=== PATIENT | male | born 1950 | race Caucasian/White ===

== ENCOUNTER 2017-01-15 14:45 | Outpatient (CLI) | payer MEDICARE ==
[2017-01-15 16:24] LABS: #Eosinphils 0.4 thou/uL (0.0-0.7); #Monocytes 0.5 thou/uL (0.11-0.59); #Neutrophils 5.1 thou/uL (1.40-6.50); %Basophils 0.3 % (0.0-1.0); %Eosinophils 5.2 % (0.0-10.0); %Lymphocytes 24.4 % (21.0-51.0); %Monocytes 6.7 % (0.0-10.0); Hematocrit 31.8 % (42.0-52.0); Mean Platelet Volume 7.7 fL (7.4-10.4); Red Blood Cell (RBC) Count 3.62 mill/uL (4.70-6.10)
[2017-01-15 16:43] LABS: Anion Gap 14 mmol/L (10-20); BUN (Urea Nitrogen) 58 mg/dL (8.4-25.7); Calc. Creatinine Clearance 0 mL/min (70-130); Calcium 8.7 mg/dL (7.8-10.44); Carbon Dioxide 26 mmol/L (23-31); Chloride 107 mmol/L (98-107); Estimated GFR-MDRD 6
== END 2017-01-15 14:46 | disposition home or self-care (01) ==
LOC: LABBT 14:45
PROVIDERS: ATTEND Specialist
DX: Z01.812 Encounter for preprocedural laboratory examination (principal); T85.611A Breakdown (mechanical) of intraperitoneal dialysis catheter, initial encounter; N18.6 End stage renal disease
CPT/HCPCS: 80048; 85025

== ENCOUNTER → 2017-01-16 | Day surgery (SDC) | payer MEDICARE ==
[2017-01-15 15:13] VITALS: BMI 32.3
--- NOTE | 2017-01-15 15:49 | HP ---
HISTORY OF PRESENT ILLNESS: Nigel Sherman is a 65-year-old male patient who lives in [place]. He suffe rs end-stage renal disease. He has been doing peritoneal dialysis at home, but has recently had prob lems with his peritoneal dialysis catheter which is not draining completely. He developed fluid over load last week and Sunday, presented to the dialysis center. Fortunately had a left arm fistula that they were dialyze in a reverse fashion with difficulty, but successfully for two and half hours, res olving his fluid overload. He presents to my office today to address his dysfunctional peritoneal di alysis catheter. On 07/26/2016, he had laparoscopic placement of double cuffed pigtail peritoneal di alysis catheter with laparoscopic omentopexy, laparoscopic adhesiolysis and at the same operation, le ft arm primary fistula, perforating branch antecubital vein to the ulnar artery, outflow primarily ce phalic vein with secondary outflow basilic vein (anatomic consideration), a 4 mm coronary dilator jason ibration cephalic vein outflow. The outflow vein was very large and ulnar artery was of excellent ca liber without arteriosclerotic disease. The patient is obese, 33 BMI, 248 pounds, 72 inches. ALLERGIES: None. TOBACCO: None. ALCOHOL: None. MEDICATIONS: Metoprolol 50 mg twice a day, aspirin 81 mg a day, Senna daily, lisinopril 5 mg a day, pravastatin 10 mg a day, pravastatin 40 mg a day, amlodipine 10 mg a day, lorazepam 2 mg at bedtime, insulin, aspirin 81 mg a day. PAST SURGICAL HISTORY: Laparoscopic peritoneal dialysis catheter and left arm fistula, otherwise non contributory. PAST MEDICAL HISTORY: End-stage renal disease on dialysis, hypertension, diabetes mellitus, obesity, metabolic syndrome. PHYSICAL EXAMINATION: VITAL SIGNS: 248 pounds, 72 inches, 33 BMI, 161/70, 87, 99 degrees. HEENT: Unremarkable. LUNGS: Clear to auscultation. CARDIAC: Regular rate and rhythm without murmur or gallop. ABDOMEN: Soft, obese. Peritoneal dialysis catheter in place. No external abnormalities. EXTREMITIES: Left arm fistula, good thrill and bruit with some ecchymosis about the right upper arm from recent access. ASSESSMENT AND PLAN: 1. Dysfunctional peritoneal dialysis catheter. Planned laparoscopic evaluation tomorrow afternoon. Procedures indicated based on laparoscopic findings. 2. He will need hemodialysis catheter placement due to dysfunctional fistula unless the course they were able to dialyze successfully today in which case a dialysis center in [facility] [place], [place], will call me and we will hold off hemodialysis catheter. 3. Obesity. 4. Hypertension. 5. Diabetes.
[~2017-01-16] MED LIST: Bupivacaine/Epinephrine 0.25% 30 ML VIAL ONE; CEFAZOLIN/Water 2 GM/20 ML SYRINGE ONE; Dexamethasone 20 MG/5 ML VIAL ONE; Fentanyl 100 MCG/2 ML VIAL ONE; Glycopyrrolate 0.2 MG/ML 5 ML SYRINGE ONE; Heparin 10,000 UNITS/1 ML VIAL ONE; Lidocaine 1% PF 5 ML VIAL ONE; Lidocaine 2% PF 5 ML VIAL ONE; Ondansetron HCl/PF 4 MG/2 ML Vial ONE; Propofol 200 MG/20 ML VIAL ONE; Sodium Chloride 0.9% 20 ML ONE; ePHEDrine/0.9% NaCl/PF SYRINGE 50 mg/10 ml ONE
--- NOTE | 2017-01-16 16:10 | RAD ---
PORTABLE CHEST: HISTORY: Assess catheter placement. FINDINGS: A dual-lumen catheter via the right jugular has been placed. The tip overlies the SVC. Heart size is mildly prominent with postop sternotomy changes noted. Lungs appear well aerated. The re is mild vascular interstitial congestion. No pneumothorax or other acute process. Tiny effusions cannot be excluded. POS: [facility]
--- NOTE | 2017-01-16 18:44 | OP ---
PREOPERATIVE DIAGNOSES: End-stage renal disease, dysfunctional peritoneal dialysis catheter malfunct ion, left upper arm cephalic vein arteriovenous fistula, in need of dialysis access. POSTOPERATIVE DIAGNOSES: End-stage renal disease, dysfunctional peritoneal dialysis catheter malfunc tion, left upper arm cephalic vein arteriovenous fistula, in need of dialysis access. PROCEDURE: Fluoroscopy and ultrasound used to place a right IJ cuffed tunnel hemodialysis catheter, angiodynamics precurved. Laparoscopic evaluation of peritoneal dialysis catheter with laparoscopic o mentopexy and laparoscopic placement of peritoneal dialysis catheter sling directed into the pelvis jonnie barnett. SURGEON: Dr. Manuel Collins ANESTHESIA: General. Local 0.25% Marcaine with epinephrine, 15 mL, mixed with 2% Xylocaine, 10 mL PROCEDURE IN DETAIL: The patient was taken to the operating room where under general anesthesia, nec k, chest, and abdomen was clipped of hair, prepared with chloraprep, draped in routine fashion. Ultr asound guidance used to cannulate the right internal jugular vein. J-wire threaded. Trocar catheter removed. Skin incised and enlarged sharply. Stab incision made over the left chest. Using the flaquita neling device, precurved angiodynamics, precurved hemodialysis catheter between these two incisions, placing the fabric cuff beneath the skin exit site on the skin, securing the catheter with suture of 3-0 nylon. Smaller and medium sized dilators placed over the J-wire into the internal jugular vein a nd removed. Dilator and pull-away sheath placed over the J-wire in superior vena cava and dilator an d J-wire removed. Catheter placed with pull-away sheath and pull-away sheath removed. Fluoroscopica lly, catheter noted to be in good position as the platysma approximated with 4-0 Monocryl, skin with subdermal 4-0 Monocryl and DermaGlue and sterile dressing applied. Each port aspirated blood and flu shed with saline solution and heparinized saline solution and 1000 units heparin per mL indicated vol ume of the port. Fluoroscopic imaging revealed good line placement. Attention was then turned to the abdomen, bilateral subcostal skin incision was made far lateral at t he old laparoscopic port sites and pneumoperitoneum to 15 mmHg obtained with the Veress needle, repla cing it with a 5 port. Video laparoscope inserted. Contralateral port placed under laparoscopic vis ualization. Omentopexy previously placed was effective, although there was another segment of omentu m that hung down towards the pelvis, but was not wrapped around the peritoneal dialysis catheter asher use this hung down in the vicinity of it as a preventive matter. Laparoscopic omentopexy performed w ith 2-0 Ethibond suture. Peritoneal dialysis catheter was dependent but was a little higher than in the pelvis than usual. It was withdrawn out of mesenteric fat. It was not adherent. The catheter had been irrigated well, bu t not drain as well as expected. Laparoscopic placement of 2-0 Ethibond sling suture placed with a t ransabdominal fixation technique using a GraNee needle used to direct the catheter more inferiorly. This was placed in such a way as to not occlude the catheter. Once this suture was placed and tied, then the catheter was flushed with heparinized saline solution 10 mL 1000 units heparin per mL. The catheter flushed well, visualized laparoscopically. Irrigant and pneumoperitoneum evacuated. All in struments removed and all skin incisions approximated with interrupted subdermal 4-0 Monocryl and Heath maGlue applied. The patient tolerated the procedure well.
== END ==
LOC: SDC 11:24
PROVIDERS: ATTEND Specialist
PROC: 0DQU4ZZ Repair Omentum, Percutaneous Endoscopic Approach (ICD-10-PCS; principal; 2017-01-16)
PROC: 05H Upper Veins, Insertion (ICD-10-PCS; 2017-01-16)
DX: T85.611A Breakdown (mechanical) of intraperitoneal dialysis catheter, initial encounter (principal); I12.0 Hypertensive chronic kidney disease with stage 5 chronic kidney disease or end stage renal disease; E11.22 Type 2 diabetes mellitus with diabetic chronic kidney disease; N18.6 End stage renal disease; E66.9 Obesity, unspecified; Z68.31 Body mass index [BMI] 31.0-31.9, adult; Z79.4 Long term (current) use of insulin; Z79.82 Long term (current) use of aspirin; Z79.899 Other long term (current) drug therapy; Z90.49 Acquired absence of other specified parts of digestive tract; Z95.1 Presence of aortocoronary bypass graft; Z98.890 Other specified postprocedural states; Z99.2 Dependence on renal dialysis
CPT/HCPCS: 36558; 49325; 49326; 71010; 82962; C1752; C1769; 36416; A4216; J0131; J1100; J1644; J2001; J2405; J2704; J3010

== ENCOUNTER 2017-01-19 06:53 | Day surgery (SDC) | payer MEDICARE ==
[2017-01-18 13:18] VITALS: BMI 33.6
[~2017-01-19 06:53] MED LIST changes: -Bupivacaine/Epinephrine 0.25% 30 ML VIAL ONE; -CEFAZOLIN/Water 2 GM/20 ML SYRINGE ONE; -Dexamethasone 20 MG/5 ML VIAL ONE; +FLU VACC TS2017-18 (>65YR) 0.5 ML SYRINGE IM ONE; -Fentanyl 100 MCG/2 ML VIAL ONE; -Glycopyrrolate 0.2 MG/ML 5 ML SYRINGE ONE; -Heparin 10,000 UNITS/1 ML VIAL ONE; -Lidocaine 1% PF 5 ML VIAL ONE; -Lidocaine 2% PF 5 ML VIAL ONE; -Ondansetron HCl/PF 4 MG/2 ML Vial ONE; -Propofol 200 MG/20 ML VIAL ONE; -Sodium Chloride 0.9% 20 ML ONE; -ePHEDrine/0.9% NaCl/PF SYRINGE 50 mg/10 ml ONE
[2017-01-19 08:31] VITALS: BP 126/63; TEMP 98.2
--- NOTE | 2017-01-19 10:48 | SPC ---
LEFT UPPER EXTREMITY FISTULOGRAM LEFT UPPER EXTREMITY VENOGRAM WITH SUPERIOR VENACAVOGRAM: Indication: Non-maturing dialysis fistula in the left upper extremity. FINDINGS: 1. Ultrasound was utilized to assess the fistula and venous outflow. Ultrasound confirms the arterial anastomosis at the brachial artery at the elbow is patent. Just proximal to the arterial anastomosis two large venous structures arise, one leading to the cephalic outflow and the other to the basilic outflow. 2. The cephalic outflow is punctured under ultrasound guidance and a 4 Italian catheter inserted. Veno gram and superior venacavogram obtained from this location. The cephalic outflow is widely patent. Ce ntral venous structures are widely patent including axillary vein, subclavian vein, and superior vena cava. 3. The basilic outflow was then puncture under ultrasound guidance. A large basilic vein arises just beyond the arterial anastomosis and is also patent. IMPRESSION: Non-maturing fistula due to two large venous outflow tracts arising just proximal to the arterial claude stomosis. PROCEDURE NOTE: Left upper extremity was prepped and draped in a sterile manner. After ultrasound evaluation the ceph alic outflow was puncture under local anesthesia with Lidocaine. Wire was introduced and a catheter w as placed over the wire. Venogram was obtained by injecting through this catheter. The basilic outflow was then punctured under ultrasound guidance and a wire was placed into the basil ic vein. Catheter was introduced. Venogram was obtained from this position. Patient tolerated the procedure fine and there were no problems or complications. POS: [facility]
== END 2017-01-19 10:10 | disposition home or self-care (01) ==
LOC: SPEC 06:53
PROVIDERS: ATTEND Specialist
DX: T82.590A Other mechanical complication of surgically created arteriovenous fistula, initial encounter (principal); N18.6 End stage renal disease
CPT/HCPCS: 36901; 76942; 90471; 90682; 90732; G0008; G0009; Q2036

== ENCOUNTER 2017-04-26 14:00 | Outpatient (CLI) | payer MEDICARE | END 2017-04-26 14:01 | disposition home or self-care (01) | LOC: BICRAD 14:00 | PROVIDERS: ATTEND Internal Medicine Nephrology | DX: Z49.02 Encounter for fitting and adjustment of peritoneal dialysis catheter (principal) | CPT/HCPCS: 74018 ==

== ENCOUNTER 2017-04-27 10:07 | Outpatient (CLI) | payer MEDICARE ==
[2017-04-27] MEDS ORDERED: Iopamidol 370 76% 100 ML VIAL ONE (11:33)
--- NOTE | 2017-04-27 13:04 | CT ---
CT ABDOMEN AND PELVIS WITH IV CONTRAST: INDICATIONS: History of end stage renal disease with right lower quadrant pain, ongoing or 1.5 weeks. The patient has no history of cancer. He does currently have a peritoneal dialysis catheter. The patient has a history of an appendectomy. COMPARISON: None. FINDINGS: There is mild bibasilar atelectasis. There are small bilateral pleural effusions. There are small gallstones within the gallbladder. There is a 5.8 x 4 cm heterogeneously enhancing h ypodense mass within the right hepatic dome, on image 6 of series 2 and on image 98 of the coronal se lilly. No pathologically enlarged lymph nodes are evident within the tyra hepatis or upper abdomen. The visualized aspects of the pancreas, spleen, and adrenal glands are normal appearing. The kidney s are atrophic. There is a 2 cm cyst involving the upper pole of the right kidney. No retroperitoneal lymphadenopathy is evident. There are severe vascular calcifications noted involving the abdominal and pelvic vasculature. There is a peritoneal dialysis catheter seen within the lower central pelvis. The bladder wall is mi ldly thickened, which may be related to chronic bladder outlet obstruction. The colon appears within normal limits. The small bowel is of normal caliber. There is scattered degenerative and osteoarthritic change. No definite acute osseous abnormality is evident. There is partial visualization and instrumentation involving the right aspect of the pelvis . IMPRESSION: 1. Heterogeneously enhancing mass within the right hepatic dome is nonspecific on this single phase examination. Findings can be seen with entities such as hepatic abscess; however, primary hepatic ma lignancy or metastatic disease is not excluded. A follow-up CT of the abdomen, utilizing hemangioma protocol, is recommended. 2. Small bilateral pleural effusions with bibasilar atelectasis. 3. Cholelithiasis. 4. Atrophic kidneys with peritoneal dialysis catheter. Small right renal cyst. The findings were discussed with Dr. Collins at 11:40 a.m. on 04/27/2017. CODE CR POS: [facility]
== END 2017-04-27 10:08 | disposition home or self-care (01) ==
LOC: CT 10:07
PROVIDERS: ATTEND Specialist
DX: N18.6 End stage renal disease (principal); K76.89 Other specified diseases of liver; J90 Pleural effusion, not elsewhere classified; J98.11 Atelectasis; K80.20 Calculus of gallbladder without cholecystitis without obstruction; N28.1 Cyst of kidney, acquired; N26.1 Atrophy of kidney (terminal); Z99.2 Dependence on renal dialysis
CPT/HCPCS: 74177

== ENCOUNTER 2017-05-02 10:27 | Outpatient (CLI) | payer MEDICARE ==
[2017-05-02] MEDS ORDERED: ISOVUE-370 76%-LOCM 1 ML ONE (12:51)
== END 2017-05-02 10:28 | disposition home or self-care (01) ==
LOC: BICULT 10:27
PROVIDERS: ATTEND Specialist
DX: N18.6 End stage renal disease (principal); R10.31 Right lower quadrant pain; K80.80 Other cholelithiasis without obstruction; K76.9 Liver disease, unspecified
CPT/HCPCS: 74170; 76705

== ENCOUNTER 2017-06-17 20:57 | Inpatient (IN) | payer MEDICARE ==
--- NOTE | 2017-06-17 22:08 | PDOC.FPRHP ---
- History of Present Illness Chief Complaint: Syncope, Hypotension History of Present Illness: 66 year old male with PMH CAD s/p 3V CABG in 2010, CHF with reduced EF of 25-30% , HLD, HTN, ESRD on PD, DM type II, and COPD that presents as a transfer from [place] ED after a syncopal episode. He was getting up from a bar stool when he fell over and lost consciousness. Patient states that he has been feeling dizzy over the last three days. He describes the dizziness as light- headedness as opposed to vertigo. He has felt dizzy upon standing for the past several days. He states that he has been drinking a pint of water a day which is his normal amount of water intake. He has otherwise been feeling well and denies any nausea, vomiting, chest pain, shortness of breath, lower extremity swelling, or diarrhea. Patient was hospitalized in May of 2017 for NSTEMI. He had a cardiac catheterization on 05/25/2017 which showed severe multivessel disease. Recommended optimization of medical management at that time. Echocardiogram during that hospitalization showed reduced EF of 25-30%. Patient states that the only symptom he had during his last hospitalization and the hospitalization which required 3V bypass surgery was left arm pain. He has never felt chest pain or shortness of breath associated with ischemic events. Patient scheduled to see Dr. Victor this week as part of hospital follow up from last admission. He has not followed with PCP since hospitalization. Patient thinks he is on a fluid pill which may be contributing to his dizziness , although there is no documentation of patient being discharged on fluid pill from hospital. ED Course: Patient was transferred from [place] ED for elevated troponin and low BP. Patient given 1 L NS bolus in ED. - Allergies/Adverse Reactions Allergies Allergy/AdvReac Type Severity Reaction Status Date / Time No Known Allergies Allergy Verified 06/18/17 02:34 - Home Medications Medication Instructions Recorded Confirmed Type Aspirin [Ecotrin] 81 mg PO DAILY 07/20/16 06/18/17 History Pravastatin Sodium [Pravachol] 40 mg PO HS 07/20/16 06/18/17 History Calcitriol 0.25 mcg PO DAILY 01/15/17 06/18/17 History Calcium Acetate [Calcium Acetate] 2 tab PO TID 01/15/17 06/18/17 History Cholecalciferol (Vitamin D3) 5,000 unit PO DAILY 01/15/17 06/18/17 History [Vitamin D3] Lactulose [Constulose] 15 ml PO DAILY PRN 01/15/17 06/18/17 History Insulin Detemir 100 UNITS/ML 40 units SC HS 30 Days #1 vial 05/26/17 06/18/17 Rx [Levemir] Metoprolol Succinate [Toprol XL] 100 mg PO DAILY 30 Days #30 tab 05/26/17 Rx Amlodipine Besylate [amLODIPine 10 mg PO DAILY 06/18/17 06/18/17 History Besylate] Sertraline HCl [Zoloft] 50 mg PO DAILY 06/18/17 06/18/17 History Sevelamer Carbonate [Renvela] 1,600 mg PO TID-WM 06/18/17 06/18/17 History Comments: Confirm med rec with pharmacy in AM - History PMHx: CAD s/p 3V CABG in 2010, Insulin dependent diabetes mellitus type 2, HTN, HLD, ESRD on PD, Depression, History of tobacco abuse, AR in 2010, CHF with EF 25-30% PSHx: CABG x3 vessels in 2010, Left forearm AV fistula placement approximately 7 months ago, Back surgery 15 years ago, Appendectomy FHx: Mother with diabetes Social: Patient reports a 30 pack per year smoking history. He states he smoke approximately one half pack per day for 50 years. Patient denies current alcohol use or illicit drug use. Former methamphetamine user. He lives at home alone. - Review of Systems General: denies: fever/chills, weight/appetite/sleep changes, night sweats, fatigue Eyes: denies: eye pain, vision changes ENT: denies: nasal congestion, rhinorrhea Respiratory: denies: cough, congestion, shortness of breath, exercise intolerance Cardiovascular: denies: chest pain, palpitation, edema Gastrointestinal: denies: nausea, vomiting, diarrhea, constipation, abdominal pain Genitourinary: denies: incontinence, dysuria, polyuria Skin: denies: rashes, lesions, jaundice, itching Musculoskeletal: reports: pain, tenderness (back pain and tenderness), other ( No left arm pain). denies: swelling Neurological: reports: syncope, other (dizziness/light-headedness). denies: numbness, seizure, weakness - Vital signs BP: 97/58 HR: 71 RR: 20 Tmax: 98.8 Pox: 95% on RA Wt: 98.88 kg - Physical Exam Constitutional: NAD, awake, alert and oriented, well developed HEENT: normocephalic and atraumatic, PERRLA, EOMI, conjunctiva clear, no scleral icterus, MMM Neck: supple Heart: RRR, normal S1/S2, no murmurs/rubs/gallops, pulses present, no edema -Heart: distant heart sounds Lungs: CTAB, no respiratory distress, good air movement, no wheezing, no retractions Abdomen: soft, non-tender, bowel sounds present -Abdomen: PD catheter on left lower quadrant. No surrounding erythema or drainage. Musculoskeletal: normal structure -Musculoskeletal: Palpable thrill of AV fistula on left arm Neurological: no focal deficit, CN II-XII intact Skin: no rash/lesions, good turgor, capillary refill <2 seconds, no jaundice Psychiatric: normal mood and affect, good judgment and insight, intact recent and remote memory FMR H&P: Results - Labs Result Diagrams: 06/18/17 02:55 06/18/17 02:55 - EKG Interpretation EKG: ST depression in lateral leads V4, V5, V6 which is a change from prior EKG which showed ST depression in anterior leads - Radiology Interpretation Chest x-ray Status: image reviewed by me, report reviewed by me Additional comment: No acute cardiopulmonary process. Pneumoperitoneum noted, likely 2/2 peritoneal dialysis. FMR H&P: A/P - Problem List (1) NSTEMI (non-ST elevated myocardial infarction) Current Visit: No Status: Acute Code(s): I21.4 - NON-ST ELEVATION (NSTEMI) MYOCARDIAL INFARCTION (2) Syncope Current Visit: Yes Status: Acute Code(s): R55 - SYNCOPE AND COLLAPSE (3) Hypotension Current Visit: Yes Status: Acute (4) Elevated troponin Current Visit: Yes Status: Acute Code(s): R74.8 - ABNORMAL LEVELS OF OTHER SERUM ENZYMES (5) CAD (coronary artery disease) Current Visit: Yes Status: Chronic Code(s): I25.10 - ATHSCL HEART DISEASE OF [place] CORONARY ARTERY W/O ANG PCTRS (6) HLD (hyperlipidemia) Current Visit: Yes Status: Chronic Code(s): E78.5 - HYPERLIPIDEMIA, UNSPECIFIED Qualifiers: Hyperlipidemia type: unspecified Qualified Code(s): E78.5 - Hyperlipidemia , unspecified (7) COPD (chronic obstructive pulmonary disease) Current Visit: No Status: Chronic Qualifiers: COPD type: unspecified COPD Qualified Code(s): J44.9 - Chronic obstructive pulmonary disease, unspecified (8) DM2 (diabetes mellitus, type 2) Current Visit: No Status: Chronic Qualifiers: 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 Diabetes mellitus complication status: with kidney complications Diabetes mellitus complication detail: with chronic kidney disease Chronic kidney disease stage : on chronic dialysis Qualified Code(s): E11.22 - Type 2 diabetes mellitus with diabetic chronic kidney disease; N18.6 - End stage renal disease; N18.6 - End stage renal disease; N18.6 - End stage renal disease; N18.6 - End stage renal disease; Z79.4 - ferry terminal agent (current) use of insulin; Z79.4 - penitentiary ( current) use of insulin; Z79.4 - penitentiary (current) use of insulin; Z79.4 - penitentiary (current) use of insulin; Z99.2 - Dependence on renal dialysis; Z99.2 - Dependence on renal dialysis; Z99.2 - Dependence on renal dialysis; Z99.2 - Dependence on renal dialysis (9) ESRD (end stage renal disease) Current Visit: No Status: Chronic Code(s): N18.6 - END STAGE RENAL DISEASE (10) HTN (hypertension) Current Visit: No Status: Chronic Code(s): I10 - ESSENTIAL (PRIMARY) HYPERTENSION Qualifiers: Hypertension type: essential hypertension Qualified Code(s): I10 - Essential (primary) hypertension (11) Heart failure with reduced ejection fraction Current Visit: No Status: Chronic Code(s): I50.20 - UNSPECIFIED SYSTOLIC ( CONGESTIVE) HEART FAILURE Qualifiers: Heart failure chronicity: acute on chronic Qualified Code(s): I50.23 - Acute on chronic systolic (congestive) heart failure (12) Tobacco abuse Current Visit: Yes Status: Chronic Code(s): Z72.0 - TOBACCO USE (13) High anion gap metabolic acidosis Current Visit: Yes Status: Acute Code(s): E87.2 - ACIDOSIS - Plan NSTEMI likely 2/2 demand - Pt without chest pain, but presents with syncopal episode - Catheterization done on 05/25/2017 which showed multivessel disease; Cards recommended optimization of medical management at that time - Echo during last hospitalization in 05/2017 showed reduced EF of 25-30% - Continue optimization of medical management; will decrease dose of coreg due to low BP and hold lisinopril until BP stabilized - Will need to verify medications with pharmacy tomorrow - Consult cardiology in AM as there are new EKG changes compared to prior EKG, as well as elevated troponin at 2.9; EKG showed lateral ST depression in V4, V5 , V6 - Prior EKG during last hospitalization showed ST depression in anterior leads - Trend CE's - Repeat EKG if patient endorses chest pain or left arm pain - Patient started on therapeutic heparin Syncope - Likely 2/2 orthostatic hypotension from volume depletion - Patient hypotensive, central line placed prior to heparin drip in the case that patient needs pressors - Pressures holding after 1L of fluids - Will hold lisinopril and decrease dose of coreg at this time until BP stabilized - Orthostatic BP's pending Hypotension - Central line placed prior to starting heparin drip as pt's BP was in mid 90's systolic and falling into the 80's occasionally - Concern for potential need for pressors - BP responded to 1L fluid bolus - Will have low threshold for additional fluid bolus should pt become hypotensive and have decreased MAPs Anion gap metabolic acidosis - Lactic acid pending - May be secondary to hypoperfusion vs. uremia CAD s/p 3V CABG in 2010 - Optimization of medication management - Cath done 05/25/17 showed multivessel disease with recommendations for optimization of medical management HFrEF of 25-30% - Based on echo done in 05/2017 - No fluid restrictions at this time as pt appears to be volume depleted - Will continue to monitor fluid status and monitor for signs of overload - Strict I&O's - Weigh daily ESRD on PD - Consult Dr. Pires in AM - Patient on nightly PD - Monitor with BMP HTN - Will hold lisinopril and decrease coreg at this time until BP stabilizes - Monitor BP HLD - Continue home medication - Consider starting on high intensity statin if no contraindications COPD - Continue home medications - Monitor O2 sats - Duoneb treatments as needed DM type II - Continue home insulin regimen - Mild SSI - CC and HH diet - ACHS accuchecks DVT PPx: Heparin Drip GI PPx: None Code status: Full Dispo: Admit to telemetry. Anticipate LOS >48 hours. FMR H&P: Upper Level - Pertinent history 66 yo CM with PMHx ESRD on PD, CAD s/p CABG x3, IDDM2, HTN presented to [place] ED for c/o dizziness and fall. Pt endorses feeling dizzy and lightheaded for 4 days especially when rising from seated position. Pt attempted to transfer to a barstool when he blacked out and fell to the floor. Endorsed hitting his head. Denies CASTILLO, N/V, or vision changes. States did not injure anything with the fall. Pt was discharged almost 2 weeks ago from the hospital following fluid overload and NSTEMI. Cardiac cath at that time showed severe blockage but nothing stentable per pt with medical management chosen as treatment. ECHO at that time showed EF 23-30%. Since then, he has seen Dr. Pires a couple times who may have adjusted medications although pt unable to specify which. Thinks a fluid pill may have been adjusted. BPs run 110s systolic at home. Denies chest pain. When had prior AR, only symptom was L arm discomfort. Compliant with dialysis and meds. Drinking 1 pint of water per day. Transferred to [facility] for admission due to elevated troponin. - Pertinent findings Gen: alert, NAD, answers questions appropriately CV: RRR, no m/r/g Lungs: fine bibasilar rales, no wheezing, no increased WOB Abd: soft, NT/ND, +BS, peritoneal dialysis catheter in LLQ with no erythema Ext: no edema; clubbing present - Plan Date/Time: 06/17/17 2204 1. NSTEMI. Troponin 2.9 in [place]. Cath 2 wks ago showed severe dz. EKG findings show lateral changes; last admission was anterior changes. Due to ESRD , starting therapeutic heparin. Consult cards in AM. Supposed to see Dr. Victor this wk as hospital f/u. Trops potentially hanging around from prior admission with ESRD due to no symptoms, although no chest pain with previous AR. If symptoms occur, repeat EKG and consider urgent cards referral. Admit to telemetry for expected 2-3 day stay. 2. Syncope. Suspect orthostatic hypotension from decreased volume status and hx of symptoms. DDX includes cardiogenic and vasovagal syncope. Given 1 L NS cautiously due to ESRD and HFrEF. Pts hypotension improved. Check orthostatic BPs. Continue to monitor and consider more fluids if symptoms persist. Cardiac monitoring. PT evaluation. 3. Hypotension. Likely 2/2 low fluid status. Careful fluids and monitor. Central line required in ED due to persistent low BPs in 80s-90s systolic with concern for needed pressors after heparin drip started. Pt endorses fluid restriction of 1 pint (475ml) although unclear if accurate. Hold home BP meds. Call pharmacy in AM to verify med list. Pts BPs improved following fluids and central line placement so currently plan to admit to telemetry. Upgrade to CCU/ IMCU if status changes requiring pressors. 4. ESRD on PD. Pt not encephalopathic and fluid status appears down. Will consult Dr. Pires in AM. Electrolyte abnormalities as expected for ESRD. BUN 74, Cr 14.6. Pneumoperitoneum on CXR although no peritoneal signs so likely 2/2 PD. 5. Anion gap metabolic acidosis. AG 24 with bicarb 20. Unclear if true acidosis. DDx lactic acidosis vs uremic acidosis. IV fluids. Check lactate. Repeat BMP. Continue peritoneal dialysis. 6. CAD. Home meds when BP normalizes. See #1. 7. Hypoxia. Lowest documented O2 91% in outside ED then placed on oxygen. Not requiring O2 currently. Lungs clear. No breathing difficulties seen. Monitor. 8. HFrEF. EF 25-30% 2 wks ago. Hx AR. Cautious IV fluids. CXR shows no fluid overload. Home meds. Fluid restriction. BNP 880 (much improved from last admission 1984). Half dose of beta nathaly due to hypotension. 9. DM2. Home insulin. Accuchecks and SSI. I, Alireza Springer, have evaluated this patient and agree with findings/plan as outlined by director international resident. Pertinent changes/additions are listed here. Attending Addendum - Attending Addendum Date/Time: 06/18/17 89 I personally evaluated the patient and discussed the management with Dr. Reddy I agree with the History, Examination, Assessment and Plan documented above with any addition or exceptions noted below- Briefly this is a 66 year old male with h/o ESRD on PD, DM, CAD with recent NSTEMI and CABG in past. COPD, and HTN presented after syncopal episode at home. Patient states that he had stood up and was walking to sit on a stool when he felt dizzy and blacked out. Reports that he has felt lightheaded/dizzy for last 2 days intermittently. Denies any CP , SOB. PMH/PSH/Meds/All/SH/ROS reviewed and agree with resident's documentation. BP: 97/58 HR: 71 RR: 20 Tmax: 98.8 Pox: 95% on RA Wt: 98.88 kg Lungs- CTA b/l; CV-RRR, no murmur; Abd- soft, mt/nd; Ext- no edema. Labs troponin 2.868 Cr= 14.48. EKG ST depression in V4-V6. A/P: 1) NSTEMI- tropnins lower than prior hospitalization. ?elevated levels due to ESRD versus new cardiac event. Continue heparin drip. Consult cardiology in AM. 2) Syncope- most likely due to volume depletion- continue to monitor. 3) Hypotension- resolved with small amount of fluids. Monitor fluid status closely. 4) ESRD- continue PD; consult nephrology. 5) DM- continue home meds.
[2017-06-17] MEDS ORDERED: Heparin 25,000 units/D5W 500 ML ONE (22:21)
[2017-06-17] MEDS ORDERED: Heparin 5,000 UNITS/ML VIAL ONE (22:21)
[2017-06-17 23:22] LABS: Troponin I 2.868 ng/mL (< 0.028)
[2017-06-18 02:04] LABS: Troponin I 2.898 ng/mL (< 0.028)
[2017-06-18 02:21] LABS: INR-International Normal Ratio 1.2; PTT 26.9 SEC (22.9-36.1); Prothrombin Time 14.9 SEC (12.0-14.7)
[2017-06-18] MEDS ORDERED: Heparin 10,000 UNITS/ 10 ML VIAL SLOW IVP SCH (02:41)
[2017-06-18] MEDS ORDERED: Acetaminophen 325 MG TAB PO PRN (02:41)
[2017-06-18] MEDS ORDERED: Ondansetron ODT 4 MG TAB PO PRN (02:41)
[2017-06-18] MEDS ORDERED: Heparin 25,000 units/D5W 500 ML IVPB SCH (02:41)
[2017-06-18 03:05] LABS: Hemoglobin 11.7 g/dL (14.0-18.0); Platelet Count 148 thou/uL (130-400)
[2017-06-18 03:37] VITALS: BMI 28.9
[2017-06-18 03:43] LABS: Lactic Acid 0.9 mmol/L (0.5-2.2)
[2017-06-18 03:46] LABS: Anion Gap 20 mmol/L (10-20); BUN (Urea Nitrogen) 75 mg/dL (8.4-25.7); Calc. Creatinine Clearance 7 mL/min (70-130); Calcium 8.5 mg/dL (7.8-10.44); Carbon Dioxide 24 mmol/L (23-31); Chloride 99 mmol/L (98-107); Estimated GFR-MDRD 3; Glucose 111 mg/dL (80-115); Potassium 3.5 mmol/L (3.5-5.1); Sodium 139 mmol/L (136-145)
[2017-06-18] MEDS ORDERED: Dextrose 50% Abboject 50 ML SYRINGE SLOW IVP PRN (04:30)
[2017-06-18] MEDS ORDERED: Dextrose 5% in Water 1,000 ML IV PRN (04:30)
--- NOTE | 2017-06-18 07:32 | RAD ---
CHEST 1 VIEW: HISTORY: A patient with recently placed central line. DATE: 06/17/17. COMPARISON: Comparison is made to previous exam from earlier in the day on 06/17/17. FINDINGS: AP view chest demonstrates sternotomy wires seen. There is some elevation of the right hemidiaphragm . Area of gas seen beneath the right hemidiaphragm is not seen at this time. This may be positional or may represent resolution. No evidence of effusions, pneumonia, or pneumothorax is seen. IMPRESSION: Previously noted area of gas beneath the right hemidiaphragm is no longer seen. POS: [facility]
--- NOTE | 2017-06-18 09:14 | PDOC.FM ---
- Subjective Subjective: Patient doing well this AM. He is up sitting on edge of bed iwthout difficulty. He was however orthostatic upon exam. He denies CP or SOB. Spoke with Dr. Pires who states he had had some fluid buildup ad was changed to a more aggressive fluid removal for PD. Patient notes that weight had been in 215- 218 range but over last few days he is down to 211. Patient also reports BP is usually around 115 systolic but had dropped as low as 88 yesterday. Does not report fever, chills, or pain. - Objective MAR Reviewed: Yes Vital Signs & Weight: Vital Signs (12 hours) Temp Pulse Resp BP BP BP BP 06/18/17 07:55 97.9 F 68 12 06/18/17 07:50 97.9 F 68 12 91/91 H 84/52 L 117/57 L 06/18/17 02:22 98.6 F 80 18 103/56 L Pulse Ox 06/18/17 07:55 94 L 06/18/17 07:50 94 L 06/18/17 02:22 93 L Weight Weight 96.751 kg Selected Entries 06/18/17 07:50 Blood Pressure 91/91 H [Sitting] Blood Pressure 84/52 L [Standing] Blood Pressure 117/57 L [Supine] Result Diagrams: 06/18/17 02:55 06/18/17 02:55 EKG Reviewed by me: Yes (ST depression V4,5,6) <Nan Kendrick - Last Filed: 06/18/17 11:56> - Objective Vital Signs & Weight: Vital Signs (12 hours) Temp Pulse Resp BP BP Pulse Ox 06/20/17 08:25 98.1 F 90 17 96 06/20/17 08:23 98.1 F 90 17 100/55 L 95 06/20/17 04:00 98.3 F 87 18 113/53 L 94 L Weight Weight 99.7 kg I&O: 06/19/17 06/20/17 06/21/17 06:59 06:59 06:59 Intake Total 1258 Balance 1258 Result Diagrams: 06/20/17 03:21 06/20/17 03:21 <Georgi Rodriguez - Last Filed: 06/20/17 11:06> Phys Exam - Physical Examination Constitutional: NAD HEENT: moist MMs Respiratory: no wheezing, no rales, no rhonchi, clear to auscultation bilateral Cardiovascular: RRR RUSB 2/6 systolic murmur Gastrointestinal: soft, non-tender, no distention Musculoskeletal: no edema Neurological: moves all 4 limbs Psychiatric: A&O x 3 <Nan Kendrick - Last Filed: 06/18/17 11:56> Dx/Plan (1) Orthostatic hypotension Code(s): I95.1 - ORTHOSTATIC HYPOTENSION Status: Acute (2) Elevated troponin Code(s): R74.8 - ABNORMAL LEVELS OF OTHER SERUM ENZYMES Status: Chronic (3) High anion gap metabolic acidosis Code(s): E87.2 - ACIDOSIS Status: Resolved (4) Hypotension Status: Acute QualifierTitle: Hypotension type: orthostatic hypotension Qualified Code( s): I95.1 - Orthostatic hypotension (5) Syncope Code(s): R55 - SYNCOPE AND COLLAPSE Status: Acute (6) CAD (coronary artery disease) Code(s): I25.10 - ATHSCL HEART DISEASE OF [place] CORONARY ARTERY W/O ANG PCTRS Status: Chronic (7) HLD (hyperlipidemia) Code(s): E78.5 - HYPERLIPIDEMIA, UNSPECIFIED Status: Chronic QualifierTitle: Hyperlipidemia type: unspecified Qualified Code(s): E78.5 - Hyperlipidemia, unspecified (8) COPD (chronic obstructive pulmonary disease) Status: Chronic QualifierTitle: COPD type: unspecified COPD Qualified Code(s): J44.9 - Chronic obstructive pulmonary disease, unspecified (9) DM2 (diabetes mellitus, type 2) Status: Chronic QualifierTitle: Diabetes mellitus residential insulin use: with residential use Diabetes mellitus complication status: with kidney complications Diabetes mellitus complication detail: with chronic kidney disease Chronic kidney disease stage: on chronic dialysis Qualified Code(s): E11.22 - Type 2 diabetes mellitus with diabetic chronic kidney disease; N18.6 - End stage renal disease; Z99.2 - Dependence on renal dialysis; Z99.2 - Dependence on renal dialysis; Z99.2 - Dependence on renal dialysis; N18.6 - End stage renal disease ; N18.6 - End stage renal disease; N18.6 - End stage renal disease; Z79.4 - terminal supervisor (current) use of insulin; Z79.4 - terminal supervisor (current) use of insulin; Z79.4 - [facility] (current) use of insulin; Z79.4 - terminal supervisor (current) use of 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 elevated trop (NSTEMI range) with ST depression in leads V4,5,6 - Likely demand ischemia in light of Severe multivessel disease and ESRD -trops less than prior admission for NSTEMI Syncope -consider carotid US vs neck CTA. -likely 2/2 orthostatic hypotension. -obtain carotid US prior to DC. HFrER -not in acute exacerbation - last ECHO on 05/31/17 with EF of 25-30% CAD s/p 3 vessel CABG -maximize medical mgmt. -appreciate cards recs -on high dose beta nathaly, lisinorpil, asa, and statin (not high dose, suspected 2/2 renal dz) ESRD on PD - Dr. Pires has been notified - PD if stays in hospital today. -will need to pull less fluid off during PD. -mgmt per Dr. Pires IDDM - BG controlled. -cont home meds HTN -orthostatic -hold meds for BP <100/70 HLD -Patient not on high intensity statin however likely due to renal dosing COPD Will walk patient and if orthostatic may require additional bolus. If not, likely home later today. <Nan Kendrick - Last Filed: 06/18/17 11:56> Attending Addendum - Attending Addendum Date/Time: 06/20/17 1102 I personally evaluated the patient and discussed the management with Dr. Kendrick I agree with the History, Examination, Assessment and Plan documented above with any addition or exceptions noted below. Plan today is carotid US. Syncope likely 2/2 orthostatic hypotension which may be worsened after change in PD regimen. CAD- optimize medical mgmt as BP tolerates. Will need outpt follow up for cont mgmt. <Georgi Rodriguez - Last Filed: 06/20/17 11:06>
[2017-06-18] MEDS: HumaLOG 300 UNITS/3 ML VIAL SC PRN ×2 (11:13→16:53)
[2017-06-18] MEDS: Sevelamer Carbonate 800 MG TAB PO SCH ×2 (11:14→16:54)
[2017-06-18] MEDS ORDERED: Heparin 25,000 units/D5W 500 ML IV SCH (13:45)
--- NOTE | 2017-06-18 15:13 | CON ---
DATE OF CONSULTATION: 06/18/2017 REASON FOR CONSULTATION: Syncope and elevated troponin. HISTORY OF PRESENT ILLNESS: Mr. Sherman is a pleasant 66-year-old gentleman who was seen and evaluated i n the past. He has a history of CAD status post bypass surgery in addition to end-stage renal diseas e. He recently presented with a syncopal episode. He states it happened 4 hours after his dialysis treatment. No chest pain or pressure, or other associated symptoms. Mr. Sherman has undergone coronary angiography of the last month. He was found to have severe multivesse l disease within the saphenous vein graft to the right coronary artery, nulato right coronary artery, circumflex artery, LAD in addition to diagonal branch. The vessels appeared very small, but did hav e multivessel disease. He was not felt to be an approachable PCI candidate. PAST MEDICAL HISTORY: As above including hypertension, diabetes mellitus, depression, cholecystitis, AV fistula repair, back surgery, appendectomy, right femur surgery. MEDICATIONS: Include metoprolol, Lasix, aspirin, Norvasc, Plavix and Levemir. SOCIAL HISTORY: No current tobacco or alcohol use. REVIEW OF SYSTEMS: Ten-point review of systems as above, otherwise negative. PHYSICAL EXAMINATION: GENERAL: Patient is a pleasant male who is in no acute distress. The patient appears his stated age . VITAL SIGNS: Blood pressure 178/57, pulse 68, temperature 97.9. NEUROLOGIC: The patient is alert and oriented times 3 with no focal neurologic deficits. HEENT: Sclerae without icterus. Mouth has moist mucous membranes with normal pallor. NECK: No JVD. Carotid upstroke brisk. No bruits bilaterally. LUNGS: Clear to auscultation with unlabored respirations. BACK: No scoliosis or kyphosis. CARDIAC: Regular rate and rhythm with normal S1 and S2. No S3 or S4 noted. No significant rubs, mu rmurs, thrills, or gallops noted throughout the precordium. PMI is not displaced. There is no marshall ternal heave. ABDOMEN: Soft, nontender, nondistended. No peritoneal signs present. No hepatosplenomegaly. No ab normal striae. EXTREMITIES: 2+ femoral and 2+ dorsalis pedis pulses. No cyanosis, clubbing, or edema. SKIN: No gross abnormalities. PERTINENT LABORATORY DATA: Peak troponin 2.8. IMAGING DATA: Last echo with Doppler dated 05/10/2017; LVEF 30%-35% with severe left atrial enlargem ent, mild to moderate TR, moderate MR. IMPRESSION: 1. Elevated troponin. 2. Ischemic cardiomyopathy. 3. Severe multivessel disease. 4. End-stage renal disease. RECOMMENDATIONS: At this point, did review Mr. Sherman's previous angio. His LAD has multiple lesions p resent within the mid to distal region and into the apex. He has ostial right coronary artery diseas e in addition to 90% stenosis of the distal RCA. to the right coronary artery also has severe lesion noted at the anastomosis. His circumflex artery is diffusely diseased with heavy calcificati on present. He also has an occluded LAD with diffuse disease present of septal branches and diagonal branches. At this point, he had 1 syncopal episode that may be ventricular in nature. At this poin t, would recommend EP consultation for possible ICD placement. His LVEF was 30%-35%. He has multive ssel disease that is not approachable percutaneously. We will continue to treat medically.
--- NOTE | 2017-06-18 16:27 | ULT ---
BILATERAL CAROTID DUPLEX ULTRASOUND WITH SPECTRAL ANALYSIS AND COLOR FLOW EVALUATION: Date: 06/18/17 HISTORY: Syncope. FINDINGS: Pollard scale, color flow, Doppler evaluation, and spectral analysis of the bilateral carotid arteries i s performed with 2D imaging. There is scattered calcified atherosclerotic plaque seen within the bilateral common carotid arteries , as well as in the carotid bulbs and proximal internal carotid arteries bilaterally. There is moderate (50-69%) stenosis involving the right internal carotid artery based on the peak sys tolic velocity of 130.2 cm/second. The right ICA/CCA ratio is 1.39. There is less than 50% maximal stenosis involving the left internal carotid artery based on peak syst olic velocity of 89.4 cm/second and an ICA/CCA ratio of 0.8. There are elevated peak systolic velocities in each external carotid artery suggesting significant st enosis. Antegrade flow is demonstrated in the vertebral arteries bilaterally. IMPRESSION: 1. Moderate (50-69%) stenosis involving the right internal carotid artery. 2. No hemodynamically significant stenosis in the left internal carotid artery. POS: RANDY
[2017-06-18] MEDS: Calcium Acetate 667 MG CAP PO SCH ×2 (16:54→21:41)
--- NOTE | 2017-06-18 17:44 | PRG ---
DATE OF SERVICE: 06/18/2017 RENAL MEDICINE SUBJECTIVE: Mr. Sherman is a 66-year-old white male with ESRD and was admitted for syncopal episode. At that time, the feeling is that he may simply be volume depleted. He also had elevated troponin I an d for that reason, Cardiology consult has been done with Dr. Chip Victor. We are now being con sulted for his maintenance peritoneal dialysis. Patient voices no new complaints today. Denies any chest pain or shortness of breath. MEDICATIONS: Medications of 06/18/2017; Tylenol p.r.n., Ecotrin 81 mg tab daily, Lipitor 10 mg tab a t bedtime, calcitriol 0.25 mcg daily, PhosLo 667 mg 2 tabs t.i.d. with meals, vitamin D3 5000 interna tional units every day. The patient is on heparin drip, Humalog sliding scale, Toprol 100 mg XL tab once a day, Zoloft 50 mg at bedtime, and Renvela 800 mg 2 tabs t.i.d. with meals. PHYSICAL EXAMINATION: VITAL SIGNS: Blood pressure 101/57, heart rate 69, respiratory rate 16, temperature 98.2, O2 sat 94% . GENERAL: Awake, supine, comfortable, not in overt distress. SKIN: Adequate turgor. HEENT: Pinkish conjunctivae, anicteric sclerae. NECK: No neck mass, no carotid bruits, no JVD. CHEST: No deformities. LUNGS: Clear breath sounds. No wheezing, no crackles. HEART: Normal sinus rhythm. No murmurs, no gallops, no rubs. ABDOMEN: Globular, soft, nontender, no masses. EXTREMITIES: No edema, no deformities. LABORATORY DATA: Laboratories of 06/18/2017; hemoglobin 11.7, sodium 139, potassium 3.5, chloride 99 , carbon dioxide 24, BUN 75, creatinine 14.48, glucose 111. Troponin I 2.898. ASSESSMENT AND PLAN: 1. End-stage renal disease, stable. We will continue current peritoneal dialysis regimen. Due to t he low blood pressure, we will be using a 1.5% PD solution doing a PD time of 10 hours with 2.5 liter fill volume. Please note that in the past, we have been using 4.25% PD solution due to his leg arturo a. No changes will be made with the current PD regimen starting from today. 2. Elevated troponin I/syncopal episode. Cardiology consult has been done with Dr. Victor. Evangelist mmendation is medical treatment for this patient for his underlying ischemic cardiomyopathy and sever e multivessel disease. 3. Syncopal episode, minimal fluid removal with peritoneal dialysis and for that reason, a 1.5% PD s olution is being used. Overall, agree with current management.
[2017-06-18] MEDS ORDERED: diphenhydrAMINE 25 MG CAP PO SCH (17:45)
[2017-06-18 17:48] LABS: #Eosinphils 0.3 thou/uL (0.0-0.7); #Lymphocytes 1.3 thou/uL (1.20-3.40); #Monocytes 0.5 thou/uL (0.11-0.59); #Neutrophils 5.1 thou/uL (1.40-6.50); %Basophils 0.6 % (0.0-1.0); %Eosinophils 4.7 % (0.0-10.0); %Lymphocytes 17.9 % (21.0-51.0); %Monocytes 6.6 % (0.0-10.0); %Neutrophils 70.2 % (42.0-75.0); Hemoglobin 11.6 g/dL (14.0-18.0); Mean Corpuscular HGB CONC 34.8 g/dL (32.0-36.0); Mean Corpuscular Hemoglobin 31.3 pg (27.0-31.0); Mean Corpuscular Volume 90.1 fl (80.0-94.0); Mean Platelet Volume 7.7 fL (7.4-10.4); Platelet Count 142 thou/uL (130-400); RBC Distribution Width 12.7 % (11.5-14.5); Red Blood Cell (RBC) Count 3.71 mill/uL (4.70-6.10); White Blood Cell (WBC) Count 7.2 thou/uL (4.8-10.8)
[2017-06-18] MEDS: Heparin 10,000 UNITS/ 10 ML VIAL SLOW IVP SCH (19:10)
[2017-06-18] MEDS: INSULIN GLARGINE SC SCH (21:40)
[2017-06-18] MEDS: Atorvastatin Calcium 10 MG TAB PO SCH (21:41)
[2017-06-19 04:44] LABS: Hemoglobin 11.4 g/dL (14.0-18.0); Platelet Count 147 thou/uL (130-400)
[2017-06-19 05:14] LABS: Anion Gap 22 mmol/L (10-20); BUN (Urea Nitrogen) 79 mg/dL (8.4-25.7); Calc. Creatinine Clearance 7 mL/min (70-130); Calcium 8.5 mg/dL (7.8-10.44); Carbon Dioxide 22 mmol/L (23-31); Chloride 96 mmol/L (98-107); Estimated GFR-MDRD 3; Glucose 136 mg/dL (80-115); Potassium 3.5 mmol/L (3.5-5.1); Sodium 136 mmol/L (136-145)
[2017-06-19] MEDS: Heparin 10,000 UNITS/ 10 ML VIAL SLOW IVP SCH (06:10)
[2017-06-19] MEDS: Aspirin 81 mg Enteric Coated Tablet PO SCH (08:36)
[2017-06-19] MEDS: Calcium Acetate 667 MG CAP PO SCH ×3 (08:36→23:01)
[2017-06-19] MEDS: Calcitriol 0.25 MCG CAP PO SCH (08:36)
[2017-06-19] MEDS: Sevelamer Carbonate 800 MG TAB PO SCH ×3 (08:36→17:40)
--- NOTE | 2017-06-19 09:04 | PDOC.CTH ---
Cardiology Progress Note - Subjective No further episodes of syncope present. No CP, SOB. - Objective Vital Signs Temp Pulse Resp BP BP Pulse Ox 06/19/17 08:10 97.9 F 77 12 100/55 L 92 L 06/19/17 04:21 98.1 F 83 18 91/60 94 L Weight 213 lb 4.8 oz 06/18/17 06/19/17 06/20/17 06:59 06:59 06:59 Intake Total 1258 Balance 1258 - Physical Examination General/Neuro: alert & oriented x3, NAD, other: Neck: carotid US brisk, no JVD present, other: Lungs: CTA, unlabored respirations, other: Heart: PMI normal, RRR, other: Abdomen: no HSM, NT/ND, soft, other: Extremities: + femoral B - Labs Result Diagrams: 06/19/17 04:22 06/19/17 04:22 Troponin/CKMB Troponin I 2.898 ng/mL (< 0.028) H* 06/18/17 01:29 - Assessment/Plan 1. Syncope 2. Elevated troponin 3. Severe CAD 4. ESRD 5. Ischemic CM 6. s/p CABG Very difficult situation. I have reviewed films once again. I have also asked Dr. Abraham previously and Dr. Cutler to review as well. All in agreement on medical therapy given the diffuse nature of the disease, small vessel disease and tortuosity of the MYERS to the LAD with disease noted to the apex of the LAD. Recommend evaluation by EP for ICD given recent syncope and EF of 30-35%
--- NOTE | 2017-06-19 09:12 | PDOC.FM ---
- Subjective Subjective: Patient sitting on edge of bed this AM. He had a hard time sleeping due to PD and other machines going off. However he does not report overt episodes of syncope. He does endorse still feeling lightheaded upon standing. He has learned and is using skills to deal with orthostatic hypotension until his fluid deficit normalizes. - Objective MAR Reviewed: Yes Vital Signs & Weight: Vital Signs (12 hours) Temp Pulse Resp BP BP Pulse Ox 06/19/17 08:10 97.9 F 77 12 100/55 L 92 L 06/19/17 04:21 98.1 F 83 18 91/60 94 L Weight Weight 96.751 kg I&O: 06/18/17 06/19/17 06/20/17 06:59 06:59 06:59 Intake Total 1258 Balance 1258 Result Diagrams: 06/19/17 04:22 06/19/17 04:22 <Nan Kendrick - Last Filed: 06/19/17 09:16> - Objective Vital Signs & Weight: Vital Signs (12 hours) Temp Pulse Resp BP BP Pulse Ox 06/19/17 08:10 97.9 F 77 12 100/55 L 92 L 06/19/17 04:21 98.1 F 83 18 91/60 94 L Weight Weight 96.751 kg I&O: 06/18/17 06/19/17 06/20/17 06:59 06:59 06:59 Intake Total 1258 Balance 1258 Result Diagrams: 06/19/17 04:22 06/19/17 04:22 <Vladimir Wilder - Last Filed: 06/19/17 10:46> Phys Exam - Physical Examination Constitutional: NAD Respiratory: no wheezing, no rales, no rhonchi, clear to auscultation bilateral Cardiovascular: RRR, no significant murmur Gastrointestinal: soft, non-tender, no distention Musculoskeletal: no edema Neurological: moves all 4 limbs Psychiatric: A&O x 3 <Nan Kendrick - Last Filed: 06/19/17 09:16> Dx/Plan (1) Orthostatic hypotension Code(s): I95.1 - ORTHOSTATIC HYPOTENSION Status: Acute (2) Elevated troponin Code(s): R74.8 - ABNORMAL LEVELS OF OTHER SERUM ENZYMES Status: Chronic (3) High anion gap metabolic acidosis Code(s): E87.2 - ACIDOSIS Status: Resolved (4) Hypotension Status: Acute QualifierTitle: Hypotension type: orthostatic hypotension Qualified Code( s): I95.1 - Orthostatic hypotension (5) Syncope Code(s): R55 - SYNCOPE AND COLLAPSE Status: Acute (6) CAD (coronary artery disease) Code(s): I25.10 - ATHSCL HEART DISEASE OF [place] CORONARY ARTERY W/O ANG PCTRS Status: Chronic (7) HLD (hyperlipidemia) Code(s): E78.5 - HYPERLIPIDEMIA, UNSPECIFIED Status: Chronic QualifierTitle: Hyperlipidemia type: unspecified Qualified Code(s): E78.5 - Hyperlipidemia, unspecified (8) COPD (chronic obstructive pulmonary disease) Status: Chronic QualifierTitle: COPD type: unspecified COPD Qualified Code(s): J44.9 - Chronic obstructive pulmonary disease, unspecified (9) DM2 (diabetes mellitus, type 2) Status: Chronic QualifierTitle: Diabetes mellitus custodial insulin use: with custodial use Diabetes mellitus complication status: with kidney complications Diabetes mellitus complication detail: with chronic kidney disease Chronic kidney disease stage: on chronic dialysis Qualified Code(s): E11.22 - Type 2 diabetes mellitus with diabetic chronic kidney disease; N18.6 - End stage renal disease; Z99.2 - Dependence on renal dialysis; Z99.2 - Dependence on renal dialysis; Z99.2 - Dependence on renal dialysis; N18.6 - End stage renal disease ; N18.6 - End stage renal disease; N18.6 - End stage renal disease; Z79.4 - intermediate (current) use of insulin; Z79.4 - intermediate (current) use of insulin; 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; 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 Syncope -likely 2/2 orthostatic hypotension. -carotid US revealing 50-69% stenosis in right ICA -pending EP consult for possible ICD -no arrhythmias on tele elevated trop (NSTEMI range) with ST depression in leads V4,5,6 - Severe multivessel disease and ESRD -recommending medical mgmt -trops less than prior admission for NSTEMI HFrER -not in acute exacerbation - last ECHO on 05/31/17 with EF of 25-30% - EP consulted for possible ICD placement. CAD s/p 3 vessel CABG -maximize medical mgmt. -appreciate cards recs -on high dose beta nathaly, lisinorpil, asa, and statin (not high dose, suspected 2/2 renal dz) ESRD on PD -mgmt per Dr. Pranay BHANDARI - BG controlled. -cont home meds HTN -orthostatic -hold meds for BP <100/70 HLD -Patient not on high intensity statin however likely due to renal dosing COPD <Nan Kendrick - Last Filed: 06/19/17 09:16> Attending Addendum - Attending Addendum Date/Time: 06/19/17 1045 I personally evaluated the patient and discussed the management with Dr. Kendrick. I agree with the History, Examination, Assessment and Plan documented above with any addition or exceptions noted below. Awaiting EP recs per cardiology discussion. His severe CAD will otherwise be managed medically. We will give him a gentle fluid bolus to hopefully improve his orthostatic symptoms. Now that we are medically managing, he can likely be discontinued off heparin drip but will clarify with cardiology. <Vladimir Wilder - Last Filed: 06/19/17 10:46>
--- NOTE | 2017-06-19 10:31 | PRG ---
DATE OF SERVICE: 06/19/2017 RENAL MEDICINE SUBJECTIVE: Mr. Sherman is a 66-year-old white male with known history of ESRD and peritoneal dialysis. He was admitted for syncopal episode. Cardiology has evaluated this patient. Recommendation is med ical management. The daughter was concerned that every time he takes the metoprolol, his blood pres sure has been going low. Our plan is to decrease the metoprolol succinate from 100 to 50 mg tab once a day. No other complaints. Feeling better status post IV hydration. We have used 1.5% PD solutio n to minimize fluid removal. OBJECTIVE: VITAL SIGNS: Blood pressure is 100/55, heart rate 77, respiratory rate 12, temperature 97.9. GENERAL: Noted to be awake, alert, comfortable, not in distress. HEENT: He has pinkish conjunctivae, anicteric sclerae. NECK: No neck mass, no carotid bruits, no JVD. CHEST: No deformities. LUNGS: Clear breath sounds. No wheezing, no crackles. HEART: Normal sinus rhythm. No murmur, no gallops or rubs. ABDOMEN: Globular, soft, nontender, no masses. EXTREMITIES: No edema. Please note he has a PD catheter in the abdomen. MEDICATIONS: Of 06/19/2017 was reviewed. LABORATORY DATA: Of 06/19/2017, hemoglobin 11.4. Sodium 136, potassium 3.5, chloride 96, carbon loreto xide 22, BUN 79, creatinine 14.63, glucose 136, and calcium 8.5. ASSESSMENT AND PLAN: 1. End-stage renal disease, stable. Continue current continuous cycling peritoneal dialysis regimen . No changes to be made. Continue 1.5% PD solution to minimize ultrafiltration. 2. Hypertension. Adjust blood pressure meds. Off lisinopril. We will further decrease metoprolol succinate from 100 to 50 mg tab once a day. 3. Coronary artery disease/ischemic cardiomyopathy, supportive care. Medical management per recomme ndation by Cardiology.
[2017-06-19] MEDS ORDERED: Sodium Chloride 0.9% 500 ML IV SCH (10:45)
[2017-06-19] MEDS: HumaLOG 300 UNITS/3 ML VIAL SC PRN (11:34)
[2017-06-19] MEDS ORDERED: diphenhydrAMINE 50 MG/ML VIAL IVP SCH (20:00)
[2017-06-19] MEDS: Atorvastatin Calcium 10 MG TAB PO SCH (23:01)
[2017-06-20] MEDS: INSULIN GLARGINE SC SCH ×2 (00:03→21:19)
[2017-06-20 03:29] LABS: Hemoglobin 11.7 g/dL (14.0-18.0); Platelet Count 152 thou/uL (130-400)
[2017-06-20 04:29] LABS: Anion Gap 20 mmol/L (10-20); BUN (Urea Nitrogen) 74 mg/dL (8.4-25.7); Calc. Creatinine Clearance 7 mL/min (70-130); Calcium 8.8 mg/dL (7.8-10.44); Carbon Dioxide 29 mmol/L (23-31); Chloride 93 mmol/L (98-107); Estimated GFR-MDRD 3; Glucose 126 mg/dL (80-115); Potassium 3.4 mmol/L (3.5-5.1); Sodium 139 mmol/L (136-145)
--- NOTE | 2017-06-20 05:29 | CON ---
DATE OF CONSULTATION: 06/18/2017 ELECTROPHYSIOLOGY CONSULTATION This is Juju Solis, nurse practitioner, dictating as scribe for Dr. Abe Carter. REASON FOR CONSULTATION: Syncope and collapse. REFERRING PHYSICIAN: Chip Victor MD HISTORY OF PRESENT ILLNESS: Mr. Sherman is a pleasant 66-year-old gentleman with a history of coronary a rtery disease and prior bypass grafting. He was recently admitted for a syncopal episode, which occu rred at home. He had been having intermittent dizziness on and off for 3 days leading up to the even t. He completed dialysis 4 hours before he had this episode. He was sitting on a stool and when he stood up, he became lightheaded and passed out. He denies any preceding or accompanied symptoms. He did not have any heart racing, chest pain, pressure, or nausea leading up to this. He denied any ve rtiginous symptoms with this as well. Mr. Sherman has recently been evaluated in late May as an inpatient at [facility], at which point, he u nderwent left heart catheterization, which revealed multivessel disease that was not approachable wit h PCI. They proceeded with medical management alone and this time, he does present and had some mild ly elevated troponins and was diagnosed with a non-STEMI. Today, he reports that he is feeling well. He does not currently have any cardiac concerns or compla ints. He does continue to experience dizziness upon standing, but has not had any repeat syncopal ep isodes. He denies any history of syncope or near syncope. PAST MEDICAL HISTORY: End-stage renal disease; coronary artery disease, status post coronary artery bypass; hypertension; diabetes; depression; cholecystitis; AV fistula repair; back surgery; appendect miriam; right femur surgery; COPD. HOME MEDICATIONS: Toprol-XL 100 mg p.o. daily, Zoloft 50 mg daily, Levemir 40 units subcu at bedtime , Renvela 1600 mg p.o. t.i.d. with meals, amlodipine 10 mg daily, Pravachol 40 mg p.o. at bedtime, la ctulose 15 mL p.o. daily as needed, aspirin 81 mg daily, calcitriol 0.25 mcg daily, calcium acetate 2 tabs p.o. t.i.d., and vitamin D 5000 units p.o. daily. SOCIAL HISTORY: Positive for tobacco. Negative for alcohol. Negative for drugs and a history of me thamphetamine use. REVIEW OF SYSTEMS: Twelve-point review of systems was conducted, otherwise negative except as mentraheem thomasd above in HPI. PHYSICAL EXAMINATION: VITAL SIGNS: Most recent vital signs are temperature 97.5 degrees Fahrenheit, pulse 71, blood pressu re 108/59, respirations 12, oxygen saturation 92% on room air. Orthostatic blood pressures, supine 1 01/57, sitting 75/50, and standing 68/45 (positive orthostatic drop). GENERAL: This is a well-groomed, well-nourished male, who is in no acute distress. He is somewhat l ethargic and affect is somewhat flat. HEENT: Grossly intact and nonfocal without deficit. He is normocephalic, atraumatic. Sclerae are a nicteric. EOMs are intact. His oral mucosa is moist and pink with normal pallor. NECK: Supple without jugular venous distention. Carotids are without bruit and with brisk uptake bi laterally. LUNGS: Clear to auscultation bilaterally and are even and unlabored with good bilateral excursion. HEART: His heart rate is regular without murmur, rub, or gallop, and the PMI is nondisplaced. ABDOMEN: Soft and nontender without palpable masses. Positive bowel sounds are noted throughout. EXTREMITIES: Warm and dry to touch without clubbing, cyanosis, or edema. DATABASE: Serial troponins were detected and peaked at 2.8. Echocardiogram performed on 05/10/2017, EF 30%-35% with severe left atrial enlargement, [id number] TR, and moderate MR. Left heart ca theterization in May revealed multivessel disease, not approachable with PCI and treated medically. LABORATORY DATA: Today, hemoglobin 11.4, hematocrit 32.7. Chemistry from today, sodium 136, potassi um 3.5, chloride 96, carbon dioxide 22, BUN is 79, and creatinine is 14.6. IMPRESSION: 1. Chronic systolic heart failure with severely reduced ejection fraction of 25%-30% by recent echoc ardiogram. 2. End-stage renal disease. 3. Coronary artery disease with prior bypass grafting and recently found multivessel disease, medica lly treated. 4. Recurrent jjc-LD-pfwgfnsye myocardial infarction on 05/24/2017 and 06/17/2017 with elevated tropo nins, being medically treated again. 5. EKG reveals normal sinus rhythm with an intraventricular conduction delay, incomplete left bundle -branch block. 6. Orthostatic hypotension precipitating syncopal episode. PLAN AND RECOMMENDATIONS: Continue to monitor for ventricular tachycardia. Consider midodrine or __ ___ to prevent additional orthostatic collapse. Recommend considering a LifeVest upon discharge to [facility] for 40 days, at which point, reevaluation of the ejection fraction could be done. If it remains less than or equal to 35%, the patient will qualify for an ICD. Continue standard heart failure enoc men by Cardiology. Thank you for allowing us to participate in the care of this patient.
[2017-06-20] MEDS ORDERED: Calcium Carbonate 500 MG ChewTAB PO PRN (07:43)
--- NOTE | 2017-06-20 07:46 | PRG ---
ELECTROPHYSIOLOGY FOLLOWUP NOTE This is Juju Solis, nurse practitioner, dictating as scribe for Dr. Abe Carter. SUBJECTIVE: The patient was seen and evaluated and does not have any new cardiac concerns or complai nts. He continues to experience dizziness upon standing, but has not had any repeat syncopal episode s. OBJECTIVE: HEENT: The patient is normocephalic, atraumatic. NEUROLOGIC: He is alert and oriented. His affect is flat, but he does interact appropriately. NECK: Supple without jugular venous distention. LUNGS: Clear to auscultation. RESPIRATORY: Even and unlabored. HEART: Heart rate is regularly regular without murmur, rub, or gallop. ABDOMEN: Soft and nontender. Exam is benign. EXTREMITIES: Warm and dry to touch without clubbing, cyanosis, or edema. NEUROLOGIC: Grossly intact and nonfocal. DATA BASE: EKG and telemetry were reviewed. The patient is in sinus rhythm with an intraventricular conduction delay, incomplete left bundle-branch block. IMPRESSION: 1. Chronic systolic heart failure with severely reduced ejection fraction of 25%-30%. 2. End-stage renal failure, on dialysis. 3. Recurrent [id number] myocardial infarction, medically managed. 4. Intraventricular conduction delay, incomplete left bundle-branch block. 5. Orthostatic hypotension. PLAN: Continue to monitor for VT and recommend discharging with a LifeVest whenever ready. Re-evalu ate ejection fraction in 40 days and if it remains less than or equal to 35%, he qualifies for ICD pl acement. The patient may benefit from midodrine to prevent additional orthostatic episodes and/or vo lume optimization, as it appears he may have had too much volume removed with his dialysis.
[2017-06-20] MEDS: Calcium Acetate 667 MG CAP PO SCH ×3 (08:27→19:56)
[2017-06-20] MEDS: Sevelamer Carbonate 800 MG TAB PO SCH ×3 (08:27→18:27)
[2017-06-20] MEDS: Calcitriol 0.25 MCG CAP PO SCH (08:28)
[2017-06-20] MEDS: Aspirin 81 mg Enteric Coated Tablet PO SCH (08:29)
--- NOTE | 2017-06-20 08:29 | PDOC.CTH ---
Cardiology Progress Note - Subjective Patient without complaints. No CP, SOB, KHAN. Awaiting LV placement. BP still on the low side, but asymptomatic. - Objective Vital Signs Temp Pulse Resp BP BP Pulse Ox 06/20/17 08:23 98.1 F 90 17 100/55 L 95 06/20/17 04:00 98.3 F 87 18 113/53 L 94 L Weight 219 lb 12.8 oz 06/19/17 06/20/17 06/21/17 06:59 06:59 06:59 Intake Total 1258 Balance 1258 - Physical Examination General/Neuro: alert & oriented x3, NAD Neck: carotid US brisk Lungs: CTA Heart: RRR Abdomen: no HSM, NT/ND Extremities: other: (no edema) - Telemetry Telemetry Rhythm: SR, IVCD - Labs Result Diagrams: 06/20/17 03:21 06/20/17 03:21 Troponin/CKMB Troponin I 2.898 ng/mL (< 0.028) H* 06/18/17 01:29 - Assessment/Plan 1. Chronic systolic CHF - optimize medications. Currently euvolemic. Probably will not tolerate OLVIN-Inh secondary to hypotension. Lisinopril held this morning. No evidence of VT on tele. Ok for discharge once LifeVest placed. F/U in 1-2 weeks in office. 2. Hypotension 3. ESRD 4. NSTEMI - medically managed.
--- NOTE | 2017-06-20 08:43 | PDOC.FM ---
- Subjective Subjective: Patient is up feeling ok this morning. Denies lightheadedness while walking this AM. He is having some generalized weakness and he has been told this is from the PD solution. - Objective Vital Signs & Weight: Vital Signs (12 hours) Temp Pulse Resp BP BP Pulse Ox 06/20/17 08:23 98.1 F 90 17 100/55 L 95 06/20/17 04:00 98.3 F 87 18 113/53 L 94 L Weight Weight 99.7 kg I&O: 06/19/17 06/20/17 06/21/17 06:59 06:59 06:59 Intake Total 1258 Balance 1258 Result Diagrams: 06/20/17 03:21 06/20/17 03:21 <Nan Kendrick - Last Filed: 06/20/17 08:39> - Objective Vital Signs & Weight: Vital Signs (12 hours) Temp Pulse Resp BP BP Pulse Ox 06/20/17 08:25 98.1 F 90 17 96 06/20/17 08:23 98.1 F 90 17 100/55 L 95 06/20/17 04:00 98.3 F 87 18 113/53 L 94 L Weight Weight 99.7 kg I&O: 06/19/17 06/20/17 06/21/17 06:59 06:59 06:59 Intake Total 1258 Balance 1258 Result Diagrams: 06/20/17 03:21 06/20/17 03:21 <Georgi Rodriguez - Last Filed: 06/20/17 11:07> Phys Exam - Physical Examination Constitutional: NAD HEENT: moist MMs Respiratory: no wheezing, no rales, no rhonchi Cardiovascular: RRR, no significant murmur Gastrointestinal: soft, non-tender Musculoskeletal: no edema Neurological: non-focal, moves all 4 limbs Psychiatric: normal affect, A&O x 3 Skin: cap refill <2 seconds Deviation from normal: area of excoriation due to itching on left forarm and arm <Nan Kendrick - Last Filed: 06/20/17 08:39> Dx/Plan (1) Orthostatic hypotension Code(s): I95.1 - ORTHOSTATIC HYPOTENSION Status: Acute (2) Elevated troponin Code(s): R74.8 - ABNORMAL LEVELS OF OTHER SERUM ENZYMES Status: Chronic (3) High anion gap metabolic acidosis Code(s): E87.2 - ACIDOSIS Status: Resolved (4) Hypotension Status: Acute QualifierTitle: Hypotension type: orthostatic hypotension Qualified Code( s): I95.1 - Orthostatic hypotension (5) Syncope Code(s): R55 - SYNCOPE AND COLLAPSE Status: Acute (6) CAD (coronary artery disease) Code(s): I25.10 - ATHSCL HEART DISEASE OF [place] CORONARY ARTERY W/O ANG PCTRS Status: Chronic (7) HLD (hyperlipidemia) Code(s): E78.5 - HYPERLIPIDEMIA, UNSPECIFIED Status: Chronic QualifierTitle: Hyperlipidemia type: unspecified Qualified Code(s): E78.5 - Hyperlipidemia, unspecified (8) COPD (chronic obstructive pulmonary disease) Status: Chronic QualifierTitle: COPD type: unspecified COPD Qualified Code(s): J44.9 - Chronic obstructive pulmonary disease, unspecified (9) DM2 (diabetes mellitus, type 2) Status: Chronic QualifierTitle: Diabetes mellitus intermediate card tender insulin use: with mcfp use Diabetes mellitus complication status: with kidney complications Diabetes mellitus complication detail: with chronic kidney disease Chronic kidney disease stage: on chronic dialysis Qualified Code(s): E11.22 - Type 2 diabetes mellitus with diabetic chronic kidney disease; N18.6 - End stage renal disease; Z99.2 - Dependence on renal dialysis; Z99.2 - Dependence on renal dialysis; Z99.2 - Dependence on renal dialysis; N18.6 - End stage renal disease ; N18.6 - End stage renal disease; N18.6 - End stage renal disease; Z79.4 - intermediate accountant (current) use of insulin; Z79.4 - intermediate accountant (current) use of insulin; Z79.4 - intermediate accountant (current) use of insulin; Z79.4 - intermediate accountant (current) use of insulin; Z99.2 - Dependence on renal dialysis (10) ESRD (end stage renal disease) Code(s): N18.6 - END STAGE RENAL DISEASE Status: Chronic (11) Heart failure with reduced ejection fraction Code(s): I50.20 - UNSPECIFIED SYSTOLIC (CONGESTIVE) HEART FAILURE Status: Chronic QualifierTitle: Heart failure chronicity: chronic Qualified Code(s): I50.22 - Chronic systolic (congestive) heart failure - Plan Plan: 66 yr old male with PMH of extensive CAD s/p 3 vessel CABG presents after syncopal episode and found to have elevated trops with EKG changes. Syncope -likely 2/2 orthostatic hypotension. -carotid US revealing 50-69% stenosis in right ICA- follow up outpatient -no arrhythmias on tele Itching -will offer PRN benadryl -hydrocortisone for areas of excoriation elevated trop (NSTEMI range) - Severe multivessel disease and ESRD -optimize medical mgmt per cardiology recs however he is so hypotensive that OLVIN -I has been held and likely will not tolerate going home on it. Will need follow up outpt to determine if he can go back on it HFrER -not in acute exacerbation - last ECHO on 05/31/17 with EF of 25-30% - pending lifevest placement, then can be discharged CAD s/p 3 vessel CABG -maximize medical mgmt. ESRD on PD -mgmt per Dr. Pires IDDM - BG controlled. -cont home meds HTN -orthostatic -hold meds for BP <100/70 HLD -Patient not on high intensity statin however likely due to renal dosing -cont current dose statin COPD <Nan Kendrick - Last Filed: 06/20/17 08:39> Attending Addendum - Attending Addendum Date/Time: 06/20/17 1106 I personally evaluated the patient and discussed the management with Dr. Kendrick. I agree with the History, Examination, Assessment and Plan documented above with any addition or exceptions noted below. No c/o's today. Lungs CTA. For LifeVest placement then home when arranged. <Georgi Rodriguez - Last Filed: 06/20/17 11:07>
[2017-06-20] MEDS ORDERED: Lisinopril 2.5 MG TAB PO SCH (09:00)
--- NOTE | 2017-06-20 09:29 | PRG ---
DATE OF SERVICE: 06/20/2017 SUBJECTIVE: Mr. Sherman seems to be doing well. No new symptoms noted. OBJECTIVE: VITAL SIGNS: Blood pressure is 100/55, heart rate 90, respiration 17, temperature 98.1 degrees Fahre nheit. GENERAL: He is alert and oriented man in no apparent distress. NECK: Supple. Jugular veins not distended. CHEST: Coarse, no crackles. CARDIOVASCULAR: Heart sounds are regular to rate and rhythm. No murmur or gallop. ABDOMEN: Benign. Bowel sounds positive. EXTREMITIES: Lower extremities without edema, clubbing or cyanosis. DATABASE: The telemetry strips reveals sinus rhythm. No ventricular arrhythmias. ASSESSMENT AND PLAN: 1. Chronic systolic congestive heart with reduced LVEF of 25-30%. 2. Recurrent non-ST elevation myocardial infarction at 3.2 on this admission as well as about a xiomara h ago elevated troponins were also noted. 3. Chronic end-stage renal disease without options for revascularization. 4. 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 5. Orthostatic hypotension, likely causing his syncopal spell. 6. End-stage renal disease on peritoneal dialysis. PLAN: For now, no further ventricular arrhythmias documented on telemetry. At this point, it is boone sonable to discharge him on LifeVest. Further efforts could be made for orthostatic hypotension. I would like to reevaluate him in 4 days with an echocardiogram and a followup in our office for kim miller for biventricular ICD at that time.
--- NOTE | 2017-06-20 10:11 | PRG ---
DATE OF SERVICE: 06/20/2017 SERVICE: Renal Medicine. SUBJECTIVE: Mr. Sherman is a 66-year-old white male, with ESRD being followed up by the Renal Service fo r his maintenance peritoneal dialysis. He is doing well with the peritoneal dialysis. He was initia lly admitted for syncopal episode/hypotension. His BP meds have been adjusted. I have decreased his beta nathaly. His lisinopril has been placed on hold. He has also been seen by Cardiology due to e levated troponin. The recommendation is medical management for Mr. Sherman. No other complaints today. No chest pain or shortness of breath. OBJECTIVE: VITAL SIGNS: Blood pressure 100/55, heart rate 90, respiratory rate 17, temperature 98.1, pulse ox 9 5%. GENERAL EXAM: Awake, alert, comfortable, not in overt distress. SKIN: Adequate turgor. HEENT: He has pinkish conjunctivae, anicteric sclerae. NECK: No neck mass, no carotid bruits, no JVD. CHEST: No deformities. LUNGS: Clear breath sounds, no wheezing, no crackles. HEART: Normal sinus rhythm. No murmur, no gallops, no rubs. ABDOMEN: Globular, soft, nontender. No masses. Positive for PD catheter. EXTREMITIES: No edema, no deformities. Medications of 06/20/2017 was reviewed. LABORATORY DATA: Laboratories of 06/20/2017, hemoglobin 11.7. Sodium 139, potassium 3.4, chloride 9 3, carbon dioxide 29, BUN 74, creatinine 14.7, glucose 126, calcium 8.8. ASSESSMENT AND PLAN: 1. End-stage renal disease, stable. Continue current continuous dialysis peritoneal dialysis regime n. Tolerating peritoneal dialysis. Ultrafiltration will be adjusted as needed. 2. Syncopal episode, resolved. 3. Hypertension - blood pressure medications adjusted. Overall, agree with current management.
--- NOTE | 2017-06-20 11:48 | PQF ---
CLINICAL DOCUMENTATION IMPROVEMENT CLARIFICATION FORM: ICD-10 Updated PLEASE DO AN ADDENDUM TO THE PROGRESS NOTE WITH ANY DOCUMENTATION UPDATES OR ADDITIONS AND CARRY THROUGH TO DC SUMMARY. THANK YOU. DATE: 06/20/17 ATTN: Dr. Kendrick/ Attending Dr. Rodriguez Please exercise your independent, professional judgment in responding to the clarification form. Clinical indicators are provided on the bottom of this form for your review Please check appropriate box(s): AMI TYPE: [x ] NSTEMI [ ] AMI Type II [ ] Other diagnosis: [ ] Unable to determine In addition, please specify: Present on Admission (POA): [ x ] Yes [ ] No [ ] Unable to determine CLINICAL INDICATORS - SIGNS / SYMPTOMS / LABS LABS: 06/17 TROPONIN I 2.868 06/18 TROPONIN I 2.898 EP EVAL: RECURRENT [id number] MYOCARDIAL INFARCTION ON 05/24/2017 & 06/17/2017 W/ ELEVATED TROPONINS, BEING MEDICALLY TREATED AGAIN. CARDIOLOGY PN 06/20: NSTEMI - MEDICALLY MANAGED. PN 06/20: ELEVATED TROP (NSTEMI RANGE) -SEVERE MULTIVESSEL DISEASE & ESRD RISKS: H&P: PT WAS HOSPITALIZED IN MAY OF 2017 FOR NSTEMI. CARDIAC CATH 2017 SHOWED SEVERE MULTIVESSEL DISEASE. PMHX: CAD S/P 3V CABG IN 2010; IDDM TYPE 2; HTN, ESRD OF PD. CHF. TREATMENT: CARDIOLOGY CONSULT ORDER 06/18: HEPARIN GTT IV. DC'D 06/19/17. Thank you, Latia (This form is maintained as a part of the permanent medical record) 2014 [employer]. All Rights Reserved Latia Steen RN, BSN [email or web address] Office: [phone] [facility]
[2017-06-20] MEDS: Proctozone-HC 2.5% Cream 30 GM TUBE TOP SCH (13:38)
[2017-06-20] MEDS ORDERED: Nitroglycerin 0.4 MG TAB (25 Tab Bottle) SL PRN (19:11)
[2017-06-20] MEDS ORDERED: Famotidine/PF 20 mg/2ml Vial SLOW IVP SCH (19:14)
[2017-06-20 19:15] LABS: CKMB 4.7 ng/mL (0-6.6)
[2017-06-20 19:22] LABS: Troponin I 1.831 ng/mL (< 0.028)
--- NOTE | 2017-06-20 19:23 | PDOC.EVN ---
Event Note - Event Note Event Note: Called by nurse 2/2 pt reporting epigastric pain that is described as burning in nature without radiation or associated sob, diaphoresis. He did report one episode of nausea with vomiting. Reports this episode occurred when he was standing to go to the restroom. Pain lasted approximately 10 minutes and resolved when the pt took his calcium supplement. He reports Tums resolves the pain temporarily, but then it returns. An EKG was ordered and showed st depression in V5-6 which is unchanged from his previous ekg. Cardiac enzymes were ordered and the results are pending. On exam the pt was in no acute distress and reported complete resolution of pain. He was resting comfortably in bed, heart was rrr, no m/r/g, lungs cta-b/l. No s/s respiratory distress. Will check orthostatics. Pepcid IV X1. Trend cardiac enzymes.
[2017-06-20] MEDS: Atorvastatin Calcium 10 MG TAB PO SCH (19:56)
[2017-06-20 23:00] LABS: CKMB 5.1 ng/mL (0-6.6)
[2017-06-20 23:09] LABS: Critical Call Chem Troponin I RESULT DECREASING; Troponin I 1.709 ng/mL (< 0.028)
[2017-06-21 02:29] LABS: Anion Gap 21 mmol/L (10-20); BUN (Urea Nitrogen) 77 mg/dL (8.4-25.7); Calc. Creatinine Clearance 7 mL/min (70-130); Calcium 9.3 mg/dL (7.8-10.44); Carbon Dioxide 24 mmol/L (23-31); Chloride 95 mmol/L (98-107); Estimated GFR-MDRD 3; Glucose 180 mg/dL (80-115); Potassium 4.5 mmol/L (3.5-5.1); Sodium 135 mmol/L (136-145)
[2017-06-21 02:30] LABS: Troponin I 1.806 ng/mL (< 0.028)
[2017-06-21] MEDS ORDERED: Famotidine 20 MG TAB PO SCH (09:00)
[2017-06-21] MEDS: Sevelamer Carbonate 800 MG TAB PO SCH ×2 (09:09→11:28)
[2017-06-21] MEDS: Calcitriol 0.25 MCG CAP PO SCH (09:10)
[2017-06-21] MEDS: Aspirin 81 mg Enteric Coated Tablet PO SCH (09:10)
[2017-06-21] MEDS: Calcium Acetate 667 MG CAP PO SCH (09:11)
[2017-06-21] MEDS: Proctozone-HC 2.5% Cream 30 GM TUBE TOP SCH (09:15)
--- NOTE | 2017-06-21 09:33 | PDOC.FM ---
- Subjective Subjective: patient istting up without complaints this AM. Had an episdoe of chest pain at discharge yesterday and trops were trending and remained below his admission level. Expect they still elevated due to his ESRD and difficulty clearing. He did have vomiting x 1 with the chest pain. Also c/o indigestion. chest pain resolved after 5 minutes and he diescribes it in the mid epigastric to mid sternal region. - Objective MAR Reviewed: Yes Vital Signs & Weight: Vital Signs (12 hours) Temp Pulse Resp BP BP Pulse Ox 06/21/17 07:39 98.5 F 84 17 113/62 92 L 06/21/17 04:00 98.9 F 89 12 117/57 L 94 L Weight Weight 101.151 kg Result Diagrams: 06/20/17 03:21 06/21/17 01:42 <Nan Kendrick - Last Filed: 06/21/17 10:50> - Objective Vital Signs & Weight: Vital Signs (12 hours) Temp Pulse Resp BP BP Pulse Ox 06/21/17 07:39 98.5 F 84 17 113/62 92 L 06/21/17 04:00 98.9 F 89 12 117/57 L 94 L Weight Weight 101.151 kg Result Diagrams: 06/20/17 03:21 06/21/17 01:42 <Georgi Rodriguez - Last Filed: 06/21/17 10:56> Phys Exam - Physical Examination Constitutional: NAD HEENT: moist MMs Respiratory: no wheezing, no rales, no rhonchi, clear to auscultation bilateral Cardiovascular: RRR, no significant murmur Gastrointestinal: soft, non-tender Musculoskeletal: no edema Psychiatric: A&O x 3 <Nan Kendrick - Last Filed: 06/21/17 10:50> Dx/Plan (1) Orthostatic hypotension Code(s): I95.1 - ORTHOSTATIC HYPOTENSION Status: Acute (2) Elevated troponin Code(s): R74.8 - ABNORMAL LEVELS OF OTHER SERUM ENZYMES Status: Chronic (3) High anion gap metabolic acidosis Code(s): E87.2 - ACIDOSIS Status: Resolved (4) Hypotension Status: Acute QualifierTitle: Hypotension type: orthostatic hypotension Qualified Code( s): I95.1 - Orthostatic hypotension (5) Syncope Code(s): R55 - SYNCOPE AND COLLAPSE Status: Acute (6) CAD (coronary artery disease) Code(s): I25.10 - ATHSCL HEART DISEASE OF [place] CORONARY ARTERY W/O ANG PCTRS Status: Chronic (7) HLD (hyperlipidemia) Code(s): E78.5 - HYPERLIPIDEMIA, UNSPECIFIED Status: Chronic QualifierTitle: Hyperlipidemia type: unspecified Qualified Code(s): E78.5 - Hyperlipidemia, unspecified (8) COPD (chronic obstructive pulmonary disease) Status: Chronic QualifierTitle: COPD type: unspecified COPD Qualified Code(s): J44.9 - Chronic obstructive pulmonary disease, unspecified (9) DM2 (diabetes mellitus, type 2) Status: Chronic QualifierTitle: Diabetes mellitus database report writer insulin use: with database report writer use Diabetes mellitus complication status: with kidney complications Diabetes mellitus complication detail: with chronic kidney disease Chronic kidney disease stage: on chronic dialysis Qualified Code(s): E11.22 - Type 2 diabetes mellitus with diabetic chronic kidney disease; N18.6 - End stage renal disease; Z99.2 - Dependence on renal dialysis; Z99.2 - Dependence on renal dialysis; Z99.2 - Dependence on renal dialysis; N18.6 - End stage renal disease ; N18.6 - End stage renal disease; N18.6 - End stage renal disease; Z79.4 - care home (current) use of insulin; Z79.4 - care home (current) use of insulin; Z79.4 - care home (current) use of insulin; Z79.4 - graining operator (current) use of insulin; Z99.2 - Dependence on renal dialysis (10) ESRD (end stage renal disease) Code(s): N18.6 - END STAGE RENAL DISEASE Status: Chronic (11) Heart failure with reduced ejection fraction Code(s): I50.20 - UNSPECIFIED SYSTOLIC (CONGESTIVE) HEART FAILURE Status: Chronic QualifierTitle: Heart failure chronicity: chronic Qualified Code(s): I50.22 - Chronic systolic (congestive) heart failure - Plan Plan: 66 yr old male with PMH of extensive CAD s/p 3 vessel CABG presents after syncopal episode and found to have elevated trops with EKG changes. Syncope -likely 2/2 orthostatic hypotension- now improved -carotid US revealing 50-69% stenosis in right ICA- follow up outpatient -no arrhythmias on tele Itching -will offer PRN benadryl -hydrocortisone for areas of excoriation elevated trop (NSTEMI range) - Severe multivessel disease and ESRD -optimize medical mgmt per cardiology recs - do not suspect recurrent NSTEMI yesterday. - ericaley can be dc today HFrER -not in acute exacerbation - last ECHO on 05/31/17 with EF of 25-30% - lifevest is on pateint CAD s/p 3 vessel CABG -maximize medical mgmt. ESRD on PD -mgmt per Dr. Pires IDDM - BG controlled. -cont home meds HTN -orthostatic -hold meds for BP <100/70 HLD -Patient not on high intensity statin however likely due to renal dosing -cont current dose statin COPD <Nan Kendrick - Last Filed: 06/21/17 10:50> Attending Addendum - Attending Addendum Date/Time: 06/21/17 1053 I personally evaluated the patient and discussed the management with Dr. Kendrick. I agree with the History, Examination, Assessment and Plan documented above with any addition or exceptions noted below. Feels better. Orthostais resolved. Dyspepsia last night. No change in CE's and EKG. Lungs clear. RRR. LifeVest on. Stable to d/c after PD. <Georgi Rodriguez - Last Filed: 06/21/17 10:56>
[2017-06-21 11:26] VITALS: TEMP 98.8
--- NOTE | 2017-06-21 12:50 | PRG ---
DATE OF SERVICE: 06/21/2017 SUBJECTIVE: Mr. Sherman is a 66-year-old white male with ESRD and currently on peritoneal dialysis. He was initially admitted for hypertension and near syncopal episode. He had also an elevated troponin I. Cardiology evaluate the patient and recommendation is medical management. Please note he had a t ransient episode of chest pain yesterday. This morning, he is feeling better. He makes mention is n ot tolerating his calcium acetate. No other complaints. PHYSICAL EXAMINATION: VITAL SIGNS: Blood pressure 130/62, heart rate 84, respiratory rate 17, temperature 98.5, pulse ox 9 2%. GENERAL: Awake, alert, comfortable, sitting, not in distress. SKIN: Adequate turgor. HEENT: He has pinkish conjunctivae, anicteric sclerae. NECK: No neck mass, no carotid bruits, no JVD. CHEST: No deformities. LUNGS: Clear breath sounds, no wheezing, no crackles. HEART: Normal sinus rhythm. No murmur, no gallops, no rubs. ABDOMEN: Globular, soft, nontender. EXTREMITIES: No edema. MEDICATIONS: 06/21/2017, reviewed. LABORATORIES: 06/20/2017, hemoglobin 11.7. 06/21/2017, sodium 135, potassium 4.5, chloride 95, carb on dioxide 24, BUN 77, creatinine 14.61. Troponin I 1.8. ASSESSMENT AND PLAN: 1. Chest pain -- underlying coronary artery disease. Medical management as per recommendation by Ca rdiology. 2. End-stage renal disease, stable with tolerating current continuous cycling peritoneal dialysis re [facility]. No changes will be made with the current peritoneal dialysis. He is tolerating the ultrafilt ration. 3. Abdominal pain -- he thinks this is secondary to his intake of the calcium acetate. We will disc ontinue the calcium acetate. He will continue the Renvela.
--- NOTE | 2017-06-21 17:17 | PRG ---
ELECTROPHYSIOLOGY FOLLOWUP NOTE DATE OF SERVICE: 06/21/2017 SUBJECTIVE: Mr. Sherman seems to be doing well, although he developed some atypical chest pains. No fev er, chills, or cough. No dizziness or loss of consciousness noted. OBJECTIVE DATA: VITAL SIGNS: Blood pressure 175/57 heart rate 89, respirations 12, temperature 98.9 degrees Fahrenhe it. GENERAL: He is alert and oriented man in no apparent distress. NECK: Supple. Jugular veins not distended. CHEST: Coarse. No crackles. CARDIOVASCULAR: Heart sounds are regular to rate and rhythm. No murmur or gallop. ABDOMEN: Benign. Bowel sounds positive. EXTREMITIES: Lower extremities without edema, clubbing, or cyanosis. DATABASE: No new lab data except for sodium of 135, potassium 4.5, BUN 77, creatinine 2.6. ASSESSMENT AND PLAN: Mr. Sherman is a 66-year-old man with history of end-stage coronary artery disease, recent myocardial infarction about a month ago and recurrence at this time. Admission likely due to orthostasis which was clearly documented. He had no further ventricular arrhythmia on telemetry. A t this point, it is reasonable for him to go home on LifeVest, monitoring his blood pressure is also highly advised. Followup echocardiogram requesting implantable cardioverter defibrillator impl ant if the left ventricular ejection fraction still reduced less than or equal to 35%.
[2017-06-21 17:45] VITALS: BP 108/57
--- NOTE | 2017-06-22 08:14 | DIS-2 ---
DATE OF ADMISSION: 06/17/2017 DATE OF DISCHARGE: 06/21/2017 ADMITTING ATTENDING: Dr. Kathryn Ivy. DISCHARGE ATTENDING: Dr. Georgi Rodriguez. CONSULTATIONS: 1. Dr. Victor of cardiology. 2. Dr. Pires, nephrology. 3. Dr. Brothers, electrophysiology. PRIMARY DIAGNOSES: 1. Syncope secondary to orthostatic hypotension. 2. Non-ST elevation myocardial infarction ranged troponin. 3. Coronary artery disease, status post 3-vessel coronary artery bypass graft. 4. Insulin-dependent diabetes, type 2. 5. Heart failure with reduced ejection fraction. SECONDARY DIAGNOSES: 1. Insulin-dependent diabetes type 2. 2. Hypertension. 3. Hyperlipidemia. 4. End-stage renal disease on peritoneal dialysis. 5. Depression. 6. History of tobacco use. DISCHARGE MEDICATIONS: 1. Pravastatin 40 mg p.o. at bedtime. 2. Aspirin 81 mg p.o. daily. 3. Calcitriol 0.25 mcg p.o. daily. 4. Vitamin D3 of 5000 units p.o. daily. 5. Lactulose 15 mL p.o. daily p.r.n. 6. Levemir 40 units subcutaneous at bedtime. 7. Renvela 1600 mg p.o. t.i.d. 8. Sertraline 50 mg p.o. daily. 9. Metoprolol 50 mg p.o. q.a.m. DISCONTINUED MEDICATIONS: Metoprolol 100 mg p.o. daily and amlodipine 10 mg p.o. daily. IMAGING STUDIES: 1. There was a chest x-ray done on 06/18/2017 that showed no evidence of effusion, pneumonia, or pne umothorax. 2. Carotid Doppler performed on 06/18/2017 showed moderate 50%-69% stenosis involving right internal carotid artery. No hemodynamically significant stenosis in the left internal carotid artery and the re are elevated peak systolic velocities in each external carotid artery suggesting significant steno sis. HISTORY OF PRESENT ILLNESS AND HOSPITAL COURSE: This is a 66-year-old male with a history of coronar y artery disease, status post CABG as well as heart failure with reduced ejection fraction to 25%-30% , end-stage renal disease on peritoneal dialysis who presented to the ER after a syncopal episode. P atient was admitted secondary to elevated troponins to the NSTEMI range. Patient did have EKG change s of ST segment depression in leads V4, 5 and 6. Patient was seen and evaluated by Cardiology and si christianoe he had had a recent catheterization with severe multivessel disease not approachable by PPI and r ecommendation to follow up optimize medical management. Patient was recommended to be managed that w ay. Patient denies has chest pain during his hospital stay nor does he have shortness of breath. Of note, during patient's hospital stay, he was orthostatic on multiple occasions. Of note, during h is early hospitalization, he had blood pressures supine of 101/57 and sitting 75/50 and standing 68/[address] Pires saw the patient and noted that we recently had a change in his peritoneal dialysis soluti on of 4.25% solution, which is able to remove a greater amount of volume. It was determined that lik darlene patient was orthostatic secondary to this change. As his symptoms of lightheadedness and now syn cope after that change. Patient was changed over to 1.5% peritoneal dialysis solution during his hos pitalization and patient's blood pressures improved and was not orthostatic or symptomatic on day of discharge. Of note, patient was set to be discharged the day prior to his actual discharge date; how ever, he became symptomatic with epigastric versus chest pain that he described as indigestion link. He did have some nausea and vomiting. Troponins were trended and were actually lower than his admis albina troponins and down trended. They were, however, elevated which is thought to be secondary to hi s end-stage renal disease and difficulty in clearing the enzyme. Patient's EKG again noted ST-segmen t depression in leads V5 and V6. As plan was to apply medical management, this did not further delay his discharge on following day. Patient was stable on day of discharge. Secondary to the syncopal type episode, which is thought to be secondary to orthostatic hypotension; however, due to patient's ejection fraction of 25%-30% and sugar boiler, Dr. Carter was consulted in order to determine IC D placement. He recommended LifeVest and patient was to go home on this and had a repeat echocardiog gregorio in 40 days and would consider AICD placement at that time. There were no other major complications throughout his hospital stay. DISPOSITION: Patient was discharged in stable condition. DISCHARGE INSTRUCTIONS: 1. Activity as tolerated. 2. Diet is a renal and heart healthy diet. 3. Location: Home. 4. Followup: With Dr. Pires in 1 week. Follow up with Cardiology in 2-3 weeks. Follow up with Dr. Freida frederick in one month. Also recommended to follow up with his primary care physician, Dr. Pires and this wa s set up for 06/29/2017.
[2017-06-22] MEDS ORDERED: Famotidine 20 MG TAB PO SCH (09:00)
== END 2017-06-21 15:56 | disposition home or self-care (01) | DRG 280 ==
LOC: ERS 20:57 → ERHOLD 22:31 → 2SW 06-18 02:26 → 2NO 06-19 18:30
PROVIDERS: ADMIT Family Medicine; ATTEND Family Medicine
DX: I22.2 Subsequent non-ST elevation (NSTEMI) myocardial infarction (principal); N18.6 End stage renal disease; I13.2 Hypertensive heart and chronic kidney disease with heart failure and with stage 5 chronic kidney disease, or end stage renal disease; I50.22 Chronic systolic (congestive) heart failure; E87.2 Acidosis; I21.4 Non-ST elevation (NSTEMI) myocardial infarction; I25.10 Atherosclerotic heart disease of native coronary artery without angina pectoris; T50.3X5A Adverse effect of electrolytic, caloric and water-balance agents, initial encounter; I95.2 Hypotension due to drugs; I44.7 Left bundle-branch block, unspecified; E11.22 Type 2 diabetes mellitus with diabetic chronic kidney disease; Z87.891 Personal history of nicotine dependence; I25.5 Ischemic cardiomyopathy
CPT/HCPCS: 36415; 36416; 71045; 80048; 82553; 83605; 84484; 85014; 85018; 85025; 85049; 85610; 85730; 90945; 93005; 93010; 93798; 93880; A4216; G0257; G8978-GP-CM; G8979-GP-CM; G8980-GP-CM; J1200; J1644; Q0162; S0028

== ENCOUNTER 2017-06-27 13:56 | Outpatient (CLI) | payer MEDICARE ==
--- NOTE | 2017-06-17 22:01 | PDOC.FPRHP ---
- History of Present Illness Chief Complaint: Syncope, Hypotension History of Present Illness: 66 year old male with PMH CAD s/p 3V CABG in 2010, CHF with reduced EF of 25-30% , HLD, HTN, ESRD on PD, DM type II, and COPD that presents as a transfer from - Allergies/Adverse Reactions Allergies Allergy/AdvReac Type Severity Reaction Status Date / Time No Known Allergies Allergy Verified 01/18/17 13:07 - Home Medications Medication Instructions Recorded Confirmed Type Aspirin [Ecotrin] 81 mg PO DAILY 07/20/16 01/18/17 History Insulin Detemir 100 UNITS/ML 30 unit SQ QPM 07/20/16 01/18/17 History [Levemir] Metoprolol Tartrate [Metoprolol 50 mg PO BID 07/20/16 01/18/17 History Tartrate] Pravastatin Sodium [Pravachol] 40 mg PO HS 07/20/16 01/18/17 History amLODIPine Besylate [Amlodipine 10 mg PO QPM 07/20/16 01/18/17 History Besylate] Calcitriol 0.25 mcg PO DAILY 01/15/17 01/18/17 History Calcium Acetate [Calcium Acetate] 2 tab PO TID 01/15/17 01/18/17 History Cholecalciferol (Vitamin D3) 5,000 unit PO DAILY 01/15/17 01/18/17 History [Vitamin D3] Lactulose [Constulose] 15 ml PO DAILY PRN 01/15/17 01/18/17 History Aspirin [Adult Aspirin Regimen] 81 mg PO DAILY 05/24/17 05/24/17 History Calcitriol [Rocaltrol] 0.25 mcg PO DAILY 05/24/17 05/24/17 History Calcium Acetate 667 mg PO TID 05/24/17 05/24/17 History Cholecalciferol (Vitamin D3) 5,000 units PO DAILY 05/24/17 05/24/17 History [Vitamin D3] Furosemide 80 mg PO BID 05/24/17 05/24/17 History Pravastatin Sodium [Pravachol] 40 mg PO DAILY 05/24/17 05/24/17 History Insulin Detemir 100 UNITS/ML 40 units SC HS 30 Days #1 vial 05/26/17 Rx [Levemir] Lisinopril [Zestril] 5 mg PO BID 30 Days #30 tab 05/26/17 Rx Metoprolol Succinate [Toprol XL] 100 mg PO DAILY 30 Days #30 tab 05/26/17 Rx - History PMHx: PSHx: FHx: Social: - Vital signs BP: [] HR: [] RR: [] Tmax: [] Pox: []% on [] Wt: [] FMR H&P: Upper Level - Plan Date/Time: 06/17/172158 I, [], have evaluated this patient and agree with findings/plan as outlined by international exchange coordinator resident. Pertinent changes/additions are listed here.
== END 2017-06-27 13:57 | disposition home or self-care (01) ==
LOC: BICMRI 13:56
PROVIDERS: ATTEND Internal Medicine Gastroenterology
DX: R16.0 Hepatomegaly, not elsewhere classified (principal)
CPT/HCPCS: 74181

== ENCOUNTER 2017-08-30 23:17 | Inpatient (IN) | payer MEDICARE ==
--- NOTE | 2017-08-31 00:52 | PDOC.FPRHP ---
- History of Present Illness Chief Complaint: left foot pain History of Present Illness: Mr. Sherman is a 66YOM w/ a PMH significant for PAD, HTN, HLD, DMII, & CAD who was transferred to our ED from [facility] in [place] after presenting there today complaining of left foot pain. Patient stated that he fell and stumped his left great toe about 2 weeks ago and has since felt a burning sensation in his foot every time it bumps up against something. Otherwise, he says his left foot is numb. Patient reports that his symptoms slowly worsened over the past 2 weeks until he noticed an acute change 2 days ago so he decided to go to the ED. He had an U/S of his left leg at the outside facility that was significant for severe femoral artery stenosis. 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 - Allergies/Adverse Reactions Allergies Allergy/AdvReac Type Severity Reaction Status Date / Time No Known Allergies Allergy Verified 08/31/17 00:52 - Home Medications Medication Instructions Recorded Confirmed Type Aspirin [Ecotrin Low Strength] 81 mg PO DAILY 07/20/16 08/31/17 History Pravastatin Sodium [Pravachol] 40 mg PO HS 07/20/16 08/31/17 History Calcitriol 0.25 mcg PO DAILY 01/15/17 08/31/17 History Calcium Acetate 2 tab PO TID 01/15/17 08/31/17 History Cholecalciferol (Vitamin D3) 5,000 unit PO DAILY 01/15/17 08/31/17 History [Vitamin D3] Lactulose [Constulose] 15 ml PO DAILY PRN 01/15/17 08/31/17 History Insulin Detemir 100 UNITS/ML 40 units SC HS 30 Days #1 vial 05/26/17 08/31/17 Rx [Levemir] Sertraline HCl [Zoloft] 50 mg PO DAILY 06/18/17 08/31/17 History Metoprolol Succinate [Toprol XL] 50 mg PO QAM #30 tab 06/20/17 08/31/17 Rx - History PMHx: PAD, CAD, HLD, HTN, ESRD on peritoneal dialysis, DMII PSHx: R leg pin placed s/p fracture, CABG x 3 in 2010, back surgery, L carotid endarterectomy FHx: DMII & HTN- both parents CAD, HLD - mother Social: Former smoker. Smoked ~ 1 pack q3 days for ~55years. Quit 5 months ago. Former EtOH abuse but quit drinking 2 years ago. Past meth abuse ~ 20 years ago. - Review of Systems General: reports: fever/chills. denies: fatigue Eyes: reports: other (B/L cataracts). denies: vision changes ENT: reports: rhinorrhea. denies: nasal congestion Respiratory: reports: cough, shortness of breath (with exertion) Cardiovascular: denies: chest pain, palpitation Gastrointestinal: reports: vomiting. denies: nausea, diarrhea, constipation, abdominal pain Genitourinary: denies: incontinence, dysuria Skin: reports: rashes, itching Musculoskeletal: reports: pain, tenderness Neurological: reports: numbness. denies: weakness - Vital signs BP: 113/67 HR: 85 RR: 15 Tmax: 97.7 Pox: 98% on RA - Physical Exam Constitutional: NAD, awake, alert and oriented HEENT: normocephalic and atraumatic, PERRLA, grossly normal hearing, other ( mild scleral icterus) Neck: supple, no LAD Heart: RRR, normal S1/S2, other (Trace, nonpitting edema in B/L LEs up to ankles. No pulses palapated beyond left popliteal artery in LLE. Pulses detected down to left dorsalis pedis in left leg via doppler U/S. No L dorsalis pedis pulse detected with doppler.) Lungs: CTAB, no respiratory distress, good air movement Abdomen: soft, non-tender, bowel sounds present Musculoskeletal: normal structure, other (Decreased ROM in L foot. Could not move ankle but was able to wiggle toes. Otherwise, 5/5 strength in both legs. Pain to palpation in medial LLE between knee and ankle) Neurological: CN II-XII intact, other (Decreased sensation in left foot.) Skin: good turgor, no jaundice, other (Erythema & edema in left foot with eschar on distal ends of all but the second toe of the left foot. Both LEs cold to touch.) Heme/Lymphatic: other (Large purpura over L forearm.) Psychiatric: normal mood and affect FMR H&P: Results - Labs Result Diagrams: 08/31/17 07:12 08/31/17 07:12 Lab results: Outside ER labs significant for BUN/Cr of 46/12.08 with an estimated GFR of 4 consistent with his ESRD. CRP was 44 & ESR was 33. CPK & lactic acid WNL. - Radiology Interpretation Other Status: report reviewed by me Additional comment: Outside ED imagin. LLE arterial doppler: significant for extensive atherosclerotic plaque throughout the LLEs; diminished flow in the left femoral and popliteal arteries with significant stenosis of the left femoral artery 2. Left foot x-ray: extensive small artery atherosclerotic calcifications suggesting DM; no soft tissue ulcer, signs of osteomyelitis, or acute fracture or dislocation identified FMR H&P: A/P - Problem List (1) Ischemia of left lower extremity Current Visit: No Status: Chronic Priority: High Code(s): I99.8 - OTHER DISORDER OF CIRCULATORY SYSTEM Assessment and Plan: - Left foot ischemia confirmed with doppler and obvious on exam as well. - CV surgery consulted and on board. Will wait for recs. - Will continue home antiplatelet agent and considering switching to a more potent lipid lowering agent given the extent of his vascular disease. (2) Peripheral artery disease Current Visit: No Status: Acute Code(s): I73.9 - PERIPHERAL VASCULAR DISEASE , UNSPECIFIED Assessment and Plan: - Will continue home doses of ASA & statin. (3) DM2 (diabetes mellitus, type 2) Current Visit: No Status: Chronic Qualifiers: Diabetes mellitus superintendent container terminal insulin use: with fci use Diabetes mellitus complication status: with kidney complications Diabetes mellitus complication detail: with chronic kidney disease Chronic kidney disease stage : on chronic dialysis Qualified Code(s): E11.22 - Type 2 diabetes mellitus with diabetic chronic kidney disease; N18.6 - End stage renal disease; N18.6 - End stage renal disease; N18.6 - End stage renal disease; N18.6 - End stage renal disease; Z79.4 - skilled nursing (current) use of insulin; Z79.4 - skilled nursing ( current) use of insulin; Z79.4 - superintendent container terminal (current) use of insulin; Z79.4 - superintendent container terminal (current) use of insulin; Z99.2 - Dependence on renal dialysis; Z99.2 - Dependence on renal dialysis; Z99.2 - Dependence on renal dialysis; Z99.2 - Dependence on renal dialysis Assessment and Plan: - Will continue home dose of levemir 40units QHS. (4) CAD (coronary artery disease) Current Visit: No Status: Chronic Code(s): I25.10 - ATHSCL HEART DISEASE OF [place] CORONARY ARTERY W/O ANG PCTRS Assessment and Plan: - Aware, will continue home meds. (5) ESRD (end stage renal disease) on dialysis Current Visit: No Status: Acute Code(s): N18.6 - END STAGE RENAL DISEASE; Z99.2 - DEPENDENCE ON RENAL DIALYSIS Assessment and Plan: - Aware. Will continue nightly peritoneal hemodialysis and home meds. (6) HLD (hyperlipidemia) Current Visit: No Status: Chronic Code(s): E78.5 - HYPERLIPIDEMIA, UNSPECIFIED Qualifiers: Hyperlipidemia type: unspecified Qualified Code(s): E78.5 - Hyperlipidemia , unspecified Assessment and Plan: - Will continue home meds. (7) HTN (hypertension) Current Visit: No Status: Chronic Code(s): I10 - ESSENTIAL (PRIMARY) HYPERTENSION Qualifiers: Hypertension type: essential hypertension Qualified Code(s): I10 - Essential (primary) hypertension Assessment and Plan: - Will continue home dose of metoprolol 50mg QD. FMR H&P: Upper Level - Pertinent history 66 yo WM PMH CAD s/p CABG x3 vessel, PVD, HTN, IDDM, and ESRD on PD. Presents as transfer from [facility] ER with 2 day history worsening left foot numbness and weakness. States his symptoms started 2 weeks ago after he injured his foot. Had slowly worsened over the past 2 weeks until he noticed an acute change 2 days ago. He has been compliant with medications and PD except for phosphate binders. Denies other symptoms at this time. ER: Discussed case with CV surgery - Pertinent findings Vitals: WNL GEN: NAD CV: RRR, no murmur Pulm: CTA-B Abd: Peritoneal Dialysis catheter in place and appears normal Extremities: Left foot cold to touch without out palpable pulses. Posterior tibial pulse found with doppler but appears weak. Femoral pulse found in left leg. Popliteal pulse non-palpable on left. Right dorsalis pulse absent on doppler. Right posterior tibial pulse present with doppler. Right popliteal pulse palpable. Neuro: 2/5 strength in left foot and ankle. 4/5 strength in knee flexors/ extensors. No sensation in left leg/foot below ankle. normal sensation right foot Skin: left foot cold to touch and dusky color. - Plan Date/Time: 08/31/17 0046 I, Yury Diego MD, have evaluated this patient and agree with findings/plan as outlined by audit practice intern resident. Pertinent changes/additions are listed here. 1. Severe PVD with concern for ischemic limb- CV surgery consulted and will evaluate in the morning. Pain management. 2. ESRD on PD- will contact nephro (Dr. Ptai Pires) for management. continue home meds 3. IDDM: Home meds, SSI, ACHS checks 4. HTN: Home meds 5. CAD: Home meds, change to high intensity statin. 6. Diet: NPO @ 0000, LR at 70mL/hr 7. PPx: SC heparin, fall 8. CODE: FULL DISPO: inpatient, medical, > 2 midnights. Attending Addendum - Attending Addendum Date/Time: 08/31/17 0810 I personally evaluated the patient and discussed the management with Dr. Morin/ Johnathon. I agree with the History, Examination, Assessment and Plan documented above with any addition or exceptions noted below. Patient here with a few weeks of worsening L foot pain, swelling, and change in sensation. He has clubbing on the L toenails as well as evidence of digital ischemia on exam. Pulses are overall non palpable, and arterial dopplers showed severe vascular disease. Patient will be admitted for symptomatic treatment along with CV surgery consultation to see if any endovascular options are available for his likely limb threatening ischemia versus the need for amputation.
[2017-08-31] MEDS ORDERED: Ondansetron ODT 4 MG TAB PO PRN (02:14)
[2017-08-31] MEDS ORDERED: Acetaminophen 325 MG TAB PO PRN (02:14)
[2017-08-31] MEDS ORDERED: Dextrose 5% in Water 1,000 ML IV PRN (02:29)
[2017-08-31] MEDS ORDERED: Dextrose 50% Abboject 50 ML SYRINGE SLOW IVP PRN (02:29)
[2017-08-31 02:38] VITALS: BMI 27.5
[2017-08-31] MEDS: LACTATED RINGER S IV SCH ×6 (03:55→08:51)
[2017-08-31 07:26] LABS: #Lymphocytes 1.2 thou/uL (1.20-3.40); #Monocytes 0.5 thou/uL (0.11-0.59); #Neutrophils 4.8 thou/uL (1.40-6.50); %Basophils 0.3 % (0.0-1.0); %Eosinophils 13.6 % (0.0-10.0); %Lymphocytes 16.3 % (21.0-51.0); %Monocytes 6.8 % (0.0-10.0); Hemoglobin 12.4 g/dL (14.0-18.0); Mean Corpuscular HGB CONC 32.4 g/dL (32.0-36.0); Mean Corpuscular Hemoglobin 29.9 pg (27.0-31.0); Mean Corpuscular Volume 92.5 fL (78.0-98.0); Mean Platelet Volume 7.2 fL (7.4-10.4); Platelet Count 160 thou/uL (130-400); RBC Distribution Width 14.6 % (11.5-14.5); Red Blood Cell (RBC) Count 4.14 mill/uL (4.70-6.10); White Blood Cell (WBC) Count 7.6 thou/uL (4.8-10.8)
[2017-08-31 07:49] LABS: ALT (SGPT) 14 U/L (8-55); AST (SGOT) 15 U/L (5-34); Albumin 2.9 g/dL (3.4-4.8); Alkaline Phosphatase 76 U/L (40-150); Anion Gap 19 mmol/L (10-20); BUN (Urea Nitrogen) 50 mg/dL (8.4-25.7); Bilirubin, Total 0.5 mg/dL (0.2-1.2); Calc. Creatinine Clearance 7 mL/min (70-130); Calcium 9.8 mg/dL (7.8-10.44); Carbon Dioxide 25 mmol/L (23-31); Chloride 102 mmol/L (98-107); Estimated GFR-MDRD 4; Globulin 2.7 g/dL (2.4-3.5); Glucose 126 mg/dL (80-115); Potassium 3.7 mmol/L (3.5-5.1); Protein, Total 5.6 g/dL (5.8-8.1); Sodium 142 mmol/L (136-145)
[2017-08-31] MEDS: Calcium Acetate 667 MG CAP PO SCH ×3 (08:54→16:31)
[2017-08-31] MEDS: Sevelamer Carbonate 800 MG TAB PO SCH ×3 (08:54→17:15)
[2017-08-31] MEDS: diphenhydrAMINE 25 MG CAP PO PRN ×2 (08:58→18:15)
[2017-08-31] MEDS ORDERED: Amlodipine 10 MG TAB PO SCH (09:00)
[2017-08-31] MEDS ORDERED: Aspirin 81 mg Enteric Coated Tablet PO SCH (09:00)
[2017-08-31] MEDS ORDERED: Calcitriol 0.25 MCG CAP PO SCH (09:00)
[2017-08-31] MEDS: Heparin 5,000 UNITS/ML VIAL SC SCH ×2 (09:13→16:31)
[2017-08-31] MEDS ORDERED: Lactated Ringer's 1,000 ML IV SCH (09:15)
--- NOTE | 2017-08-31 15:18 | CON ---
DATE OF CONSULTATION: 08/31/2017 REASON FOR CONSULTATION: Lower extremity PVD. HISTORY OF PRESENT ILLNESS: Mr. Manning is a 66-year-old gentleman who I have seen and evaluated in t he past. He has a history of severe CAD, not amenable to percutaneous intervention in addition to by pass surgery and he is on dialysis due to end-stage renal disease. He recently states he has had pain in his lower extremity as well as edema. He has had small healed areas noted to the lower extremity. He underwent arterial duplex in my office 2 weeks ago and was fo und to have a significant disease noted to the lower extremity. Reason for coming to the emergency r oom was edema noted to the left lower extremity. His pain has improved. PAST MEDICAL HISTORY: As above including hypertension, diabetes mellitus, cholecystitis. PAST SURGICAL HISTORY: Fistula repair, back surgery, appendectomy and femur surgery. MEDICATIONS: Lasix, Norvasc, Plavix, Levemir, metoprolol. SOCIAL HISTORY: No current tobacco or alcohol use. REVIEW OF SYSTEMS: Ten-point review of systems reviewed and as above, otherwise negative. PHYSICAL EXAMINATION: GENERAL: Patient is a pleasant male who is in no acute distress. The patient appears his stated age . VITAL SIGNS: Blood pressure 100/65, pulse 83, temperature 97.5. NEUROLOGIC: The patient is alert and oriented times 3 with no focal neurologic deficits. HEENT: Sclerae without icterus. Mouth has moist mucous membranes with normal pallor. NECK: No JVD. Carotid upstroke brisk. No bruits bilaterally. LUNGS: Clear to auscultation with unlabored respirations. BACK: No scoliosis or kyphosis. CARDIAC: Regular rate and rhythm with normal S1 and S2. No S3 or S4 noted. No significant rubs, mu rmurs, thrills, or gallops noted throughout the precordium. PMI is not displaced. There is no marshall ternal heave. ABDOMEN: Soft, nontender, nondistended. No peritoneal signs present. No hepatosplenomegaly. No ab normal striae. EXTREMITIES: Decreased pulses in the popliteal region noted bilaterally. Edema noted to the left lo wer extremity versus right with mild erythema present, which is chronic. He does have several areas of healed sores noted to the left foot. Nonpalpable dorsalis pedis pulse. SKIN: No gross abnormalities. PERTINENT LABORATORY DATA: Hemoglobin 12.4, creatinine 12.7. IMPRESSION: 1. Severe peripheral vascular disease. 2. End-stage renal disease. 3. Severe coronary artery disease. 4. Status post bypass surgery. 5. Lower extremity edema. RECOMMENDATIONS: At this point, I recommend a lower extremity venous duplex to assess for DVT. He d oes have unilateral swelling, which may be related to his previous bypass, but may also be due to a D VT. At this point, as this is felt to be negative and he is stable, it would be okay from my standpoint t o discharge home with outpatient followup. He is not felt to have a current acute event. He agrees. We will contact the patient on Sunday for scheduling.
--- NOTE | 2017-08-31 16:19 | ULT ---
ULTRASOUND WITH DOPPLER DUPLEX VENOUS LOWER EXTREMITY LEFT: HISTORY: 66-year-old male with left lower extremity edema. TECHNIQUE: Color flow Doppler, spectral waveform analysis of pulsed Doppler, and munguia-scale imaging with isabel albina and augmentation, were used to evaluate the left common femoral, femoral, popliteal, posterior t ibial, and superficial femoral, veins; and the proximal portions of the profunda femoral and greater saphenous, veins. FINDINGS: There is normal compressibility, demonstration of blood flow by color Doppler and pulsed Doppler, and response to augmentation, in all interrogated veins. IMPRESSION: Negative. No deep vein thrombosis in the left lower extremity. jn[] POS: RANDY
[2017-08-31 17:49] VITALS: BP 120/77; TEMP 97.8
[2017-08-31] MEDS ORDERED: Insulin Glargine 40 UNITS in Pre-Filled Syringe 1 EACH SC SCH (21:00)
[2017-08-31] MEDS ORDERED: Non-Formulary Item 1 EACH (Insulin Detemir 100 Units/Ml [Levemir] 40 UNITS) SC SCH (21:00)
[2017-08-31] MEDS ORDERED: Atorvastatin Calcium 40 MG TAB PO SCH ×2 (21:00)
--- NOTE | 2017-09-01 02:44 | CON ---
DATE OF CONSULTATION: 08/31/2017 REQUESTING PHYSICIAN: Dr. Jama. CHIEF COMPLAINT: Left foot pain. HISTORY OF PRESENT ILLNESS: The patient is a 66-year-old diabetic man on peritoneal dialysis who und erwent coronary artery bypass grafting in 2010 that was complicated by a perioperative strokes in bot h frontal lobes. He was found to have a high-grade carotid stenosis during the evaluation of hayley weinberg and in December of that year underwent left carotid endarterectomy. The patient seems to be a n unreliable historian, but describes pain developing in the toes of his left foot. Over the course of about a week, although when I interviewed him, he said that they no longer hurt. He has apparentl y felt like they had gotten where they were hurting badly enough that he went to the [facility] Room last night. It is not entirely clear why, but he was transferred to the emergency [facility] at [place] at [facility] and he was admitted largely based upon his description of the pain and rapid p rogression of symptoms. On questioning, the patient is very vague as to how long the eschars on the tips of all of his toes on the left side have been developing. He is not very specific about issues relating to positional changes and how that affects the pain in his left foot. PAST MEDICAL HISTORY: Significant for hypertension, diabetes, renal failure, and coronary artery dis ease. His coronary procedure involved what appears to represent an endoscopic saphenous vein harvest from his left lower extremity at least involving the thigh. Discussions with his manager general, Dr. Victor indicate that the patient has small vessel disease and reduced LVEF. HOME MEDICATIONS: Toprol-XL 50 mg q.a.m., Lipitor 80 mg at bedtime, Levemir insulin 40 units at bedt ashley, baby aspirin a day, Zoloft 50 mg a day, calcitriol, vitamin D and calcium acetate and p.r.n. lac tulose. There have not been any significant changes made to his medication list on admission. SOCIAL HISTORY: The patient indicates that he was about a pack a day smoker up until about 6 months ago. FAMILY HISTORY: Significant for multiple family members with diabetes. REVIEW OF SYSTEMS: Notable for some shortness of breath. He denies any transient eye, speech, facia l or extremity symptoms consistent with TIAs, but did not volunteer description of his strokes after his heart surgery many years ago that I discovered on chart review. PHYSICAL EXAMINATION: GENERAL: He is a chronically ill appearing man in no distress. VITAL SIGNS: Height is 6 feet tall, weight is 203 pounds, heart rate is 83, blood pressure 96/61, te mperature 97.7. He has no xanthelasma. NECK: No JVD, no carotid bruits. LUNGS: Distant breath sounds, markedly decreased force of exhalation when I asked him to blow out mah[address] against my hand, there is a well healed surgical scar on his chest consistent with his stated hist ory of CABG. A small incision medial aspect of his left thigh medially, distal thigh just above the knee and a small incision at the left groin consistent with an endoscopic vein harvest. He has a reg ular rate and rhythm without obvious murmur or gallop. ABDOMEN: Soft and nontender. He has peritoneal dialysis catheter. EXTREMITIES: He has a palpable thrill appeared to represent a brachiocephalic AV fistula that is onl y at the antecubital fossa. I do not feel it going up the arm. I am not able to appreciate radial p ulses on either side. Both femoral pulses are faint, particularly on the left side. His right femor al pulse is associated with a bruit, not able to palpate popliteal, dorsalis pedis or posterior tibia l pulses on either side. He has atrophic skin changes bilaterally. He has a few scattered shallow w ounds on his pretibial areas high. I did not spot any ischemic lesions on the right foot. On the le ft foot, there are small eschars on the tips of all of his toes. Capillary refill in his feet is 2-2 .5 seconds. He has no significant dependent edema. He has no chest x-ray here from this admission, but a chest x-ray from June shows sternal wires, cardiomegaly, somewhat elevated right hemidiaphragm a nd hilar fluffiness and pulmonary vascular congestion. Carotid Doppler from the same time frame, he has a right internal carotid velocity that peaks at 130 cm per second and a common that peaks at 94, left internal carotid that peaks at 89, and common that peaks at 112 with some scattered plaque in felice th carotids, particularly in the common. Venous Doppler of his left lower extremity showed no DVT. LABORATORY DATA: White count of 7.6, hemoglobin 12.4, platelets 160,000. Chemistries showed normal electrolytes, glucose of 126, BUN 50, creatinine 12.7, albumin 2.9, normal LFTs. Calcium 9.8. IMPRESSION AND RECOMMENDATIONS: Diabetic dialysis patient with known diffuse vascular disease develo ping ischemic tissue loss involving the left lower extremity. I am very skeptical about his descript ion of these signs and symptoms developing over only a week based on what I see it probably is, jhony pandey proceed with angiography but this typically can be handled as an outpatient workup and pre paration for planning any possible revascularization.
--- NOTE | 2017-09-03 02:11 | DIS-2 ---
DATE OF ADMISSION: 08/31/2017 DATE OF DISCHARGE: 08/31/2017 RESIDENT: Russ Crouch MD ADMITTING ATTENDING: Vladimir Wilder MD DISCHARGE ATTENDING: Vladimir Wilder MD CONSULTATIONS: 1. Nephrology, Dr. Pires, on 08/31/2017. 2. Dr. Ojeda, Cardiovascular Surgery, on 08/31/2017. 3. Dr. Victor, Cardiology, on 08/31/2017. PROCEDURE: Doppler ultrasound of the left lower extremity on 08/31/2017: Impression: Negative. No deep vein thrombosis in the left lower extremity. PRIMARY DIAGNOSIS: Possible ischemia of the left lower extremity. SECONDARY DIAGNOSES: 1. Peripheral artery disease. 2. End-stage renal disease, on peritoneal dialysis. 3. Heart failure with reduced ejection fraction. 4. Hypertension. 5. Type 2 diabetes mellitus. 6. Chronic obstructive pulmonary disease. 7. Coronary artery disease. 8. Tobacco abuse. DISCHARGE MEDICATIONS: Resume home medications includin. Aspirin 81 mg p.o. daily. 2. Calcium acetate 667 mg 2 tabs p.o. t.i.d. 3. Calcitriol 0.25 mcg p.o. daily. 4. Vitamin D3 of 5000 units p.o. daily. 5. Lactulose 15 mL p.o. daily p.r.n. 6. Detemir 40 units subcu at bedtime. 7. Sertraline 50 mg p.o. daily. 8. Metoprolol succinate 50 mg p.o. q.a.m. NEW HOME MEDICATION: Atorvastatin 80 mg p.o. at bedtime. HISTORY OF PRESENT ILLNESS AND HOSPITAL COURSE: Nigel Sherman is a 66-year-old male with past medical h istory of severe peripheral artery disease, hypertension, hyperlipidemia, type 2 diabetes, and hugo ry artery disease, who was transferred to [facility] after presenting there with complaining of left foot pain. The patient has a history of strokes and is no t a great historian, so the timeline of the foot pain was difficult to ascertain; however, patient st ated that he fell and stumped his left great toe about 2 weeks ago and since that time felt a burning sensation in his foot every time that he hit against something. Otherwise, he states that his left foot was numb. Patient feels like his symptoms have slowly worsened over the past 2 weeks. He notic ed an acute change two days ago, so he decided to go to the ED. He had an ultrasound of his left leg done at outside facility that was significant for severe femoral artery stenosis. He then requested to be transferred to [facility] as both his sustainability coach and lan specialist who work at this [facility]. Initial vital signs were all stable and within normal limits. Initial physical exam on admission showed no left dorsalis pedis pulse detected with Doppler. There was erythema and edema on left shannen t with eschar on the distal ends of all but the second toe of the left foot. Both lower extremities were cold to touch and there was pain to palpation in the medial left lower extremity between the kne e and ankle. He also had decreased range of motion of the left foot and decreased strength. Labs fr om outside ER were significant for BUN and creatinine of 46 and 12.08 with estimated GFR 4, consisten t with his end-stage renal disease and CRP of 44 and ESR 33. CPK and lactic acid are within normal l imits. Imaging from outside ED showed left lower extremity arterial Doppler significant for extensiv e atherosclerotic plaque throughout the left lower extremity, diminished flow in the left femoral and popliteal arteries with significant stenosis of the left femoral artery. Left foot x-ray showed ext ensive small artery atherosclerotic calcification suggesting diabetes mellitus. No soft tissue ulcer or signs of osteomyelitis or acute fracture or dislocation. The patient was admitted for ischemia t o the left lower extremity. CV surgeon was consulted. Dr. Ojeda also consulted. Dr. Ru booker as this is the patient's lan specialist and has been worsening of the patient's peripheral artery dis ease as well. Patient was started on high-dose statin and aspirin and Dr. Pires planned to continue pe ritoneal dialysis. Otherwise, all of his other home medications were continued. Dr. Victor saw t he patient and recommended lower extremity venous duplex to assess for DVT. This ultrasound was nega tive for any DVT. He also stated that patient's pain and severe peripheral artery disease appeared s table and from his standpoint, the patient could have to be discharged home with outpatient followup. Dr. Victor did not feel like the patient was having any current acute event and the patient agre ed. Dr. Victor stated that his office would contact the patient on Sunday for scheduling close fo llowup. PHYSICAL EXAMINATION: Dr. Victor felt like on exam, patient had edema noted to the left lower ext remity, increased compared to the right with mild erythema present, which he thought it is chronic. He noted several areas of healed sores to the left foot and nonpalpable dorsalis pedis pulse on the l eft, Dr. Ojeda was CV Surgery also saw the patient same day as admission and felt very skeptica l about the description of these signs and symptoms developing only over a week based on what he sees and he recommended a conventional angiography. He stated that this could be handled as outpatient w orkup in preparation for finding for any possible revascularization. Both Dr. Victor and Dr. Sindi del real cleared the patient for discharge on 09/02/2017. DISPOSITION: Stable. The patient has severe peripheral artery disease, but is stable and he continu e taking his high-dose statin and his aspirin and follow up with his cardiovascular surgeon and cardi ologist. DISCHARGE INSTRUCTIONS: 1. Location: Home. 2. Diet: Heart-healthy diet and diabetic diet. 3. Activity: As tolerated. 4. Followup: Follow up with primary care provider, cardiovascular surgeon, and lan specialist.
== END 2017-08-31 19:24 | disposition home or self-care (01) | DRG 299 ==
LOC: ERS 23:17 → T4-B 08-31 02:08
PROVIDERS: ADMIT Student in an Organized Health Care Education/Training Program; ATTEND Student in an Organized Health Care Education/Training Program
DX: E11.51 Type 2 diabetes mellitus with diabetic peripheral angiopathy without gangrene (principal); N18.6 End stage renal disease; I13.2 Hypertensive heart and chronic kidney disease with heart failure and with stage 5 chronic kidney disease, or end stage renal disease; E11.22 Type 2 diabetes mellitus with diabetic chronic kidney disease; I50.9 Heart failure, unspecified; J44.9 Chronic obstructive pulmonary disease, unspecified; R60.9 Edema, unspecified; E78.5 Hyperlipidemia, unspecified; I25.10 Atherosclerotic heart disease of native coronary artery without angina pectoris; Z99.2 Dependence on renal dialysis; Z86.73 Personal history of transient ischemic attack (TIA), and cerebral infarction without residual deficits; Z95.1 Presence of aortocoronary bypass graft; Z83.3 Family history of diabetes mellitus
CPT/HCPCS: 36415; 36416; 80053; 82947; 85025; 94760; 99285; J1644

== ENCOUNTER 2017-09-12 09:31 | Observation (INO) | payer MEDICARE ==
[2017-09-11 14:25] VITALS: BMI 27.2
[~2017-09-12 09:31] MED LIST changes: -FLU VACC TS2017-18 (>65YR) 0.5 ML SYRINGE IM ONE; +Iopamidol 370 76% 100 ML VIAL ONE; +Iopamidol 370 76% 50 ML VIAL FS ONE
[2017-09-12] MEDS ORDERED: Diazepam 5 MG TAB ONE (11:24)
[2017-09-12 11:29] LABS: INR-International Normal Ratio 1.1; PTT 30.9 SEC (22.9-36.1); Prothrombin Time 14.5 SEC (12.0-14.7)
[2017-09-12 11:30] LABS: #Eosinphils 0.5 thou/uL (0.0-0.7); #Monocytes 0.6 thou/uL (0.11-0.59); #Neutrophils 5.3 thou/uL (1.40-6.50); %Basophils 0.3 % (0.0-1.0); %Lymphocytes 13.2 % (21.0-51.0); %Monocytes 7.5 % (0.0-10.0); %Neutrophils 72.1 % (42.0-75.0); Hemoglobin 12.2 g/dL (14.0-18.0); Mean Corpuscular HGB CONC 31.6 g/dL (32.0-36.0); Mean Corpuscular Hemoglobin 29.5 pg (27.0-31.0); Mean Corpuscular Volume 93.4 fL (78.0-98.0); Mean Platelet Volume 7.6 fL (7.4-10.4); Platelet Count 162 thou/uL (130-400); RBC Distribution Width 15.1 % (11.5-14.5); Red Blood Cell (RBC) Count 4.14 mill/uL (4.70-6.10); White Blood Cell (WBC) Count 7.4 thou/uL (4.8-10.8)
[2017-09-12 11:45] LABS: ALT (SGPT) 17 U/L (8-55); AST (SGOT) 14 U/L (5-34); Albumin 2.8 g/dL (3.4-4.8); Alkaline Phosphatase 89 U/L (40-150); Anion Gap 17 mmol/L (10-20); BUN (Urea Nitrogen) 45 mg/dL (8.4-25.7); Bilirubin, Total 0.4 mg/dL (0.2-1.2); Calc. Creatinine Clearance 8 mL/min (70-130); Calcium 8.2 mg/dL (7.8-10.44); Carbon Dioxide 29 mmol/L (23-31); Cardiac Risk 4.1 (Less than 4.5); Chloride 103 mmol/L (98-107); Cholesterol 78 mg/dl (< 200 Desired); Estimated GFR-MDRD 5; Globulin 2.7 g/dL (2.4-3.5); Glucose 62 mg/dL (80-115); HDL Cholesterol 19 mg/dL (>60 Neg Risk); LDL Cholesterol, Calculated 39 mg/dL; Potassium 3.5 mmol/L (3.5-5.1); Protein, Total 5.5 g/dL (5.8-8.1); Sodium 145 mmol/L (136-145); Triglycerides 102 mg/dL (Less than 150)
[2017-09-12] MEDS ORDERED: Heparin 10,000 UNITS/1 ML VIAL ONE ×2 (12:30→13:06)
--- NOTE | 2017-09-12 14:05 | OP ---
DATE OF PROCEDURE: 09/12/2017 PREPROCEDURE DIAGNOSES: Severe peripheral vascular disease with nonhealing ulcer. POST-PROCEDURE DIAGNOSIS: Severe peripheral vascular disease. PROCEDURE: 1. Aortogram. 2. Bilateral aortofemoral runoff. 3. Successful COMPUGRAPH OPERATOR provisional stent placement to the proximal to mid SFA with a 7 x 80 mm self-expan ding stent, post-dilated 5 x 40 mm P3 balloon catheter. COMPLICATIONS: None. ESTIMATED BLOOD LOSS: Estimated blood loss less than 20 mL. DETAILS: The patient was prepped and draped in the usual sterile fashion. Access obtained in the [facility] femoral artery under ultrasound guidance. Contra catheter was used. FINDINGS: Aorta has no significant stenosis or aneurysm. Right lower extremity - common iliac, external iliac, common femoral artery had no significant diseas e. The SFA does have a focal 90% lesion present. Left lower extremity - There is significant tortuosity present with the common iliac artery. There is no significant stenosis present in the common iliac, external iliac, common femoral artery. The S FA has 100% occlusion with minimal collaterals present to the distal SFA and popliteal artery. There is 1 vessel runoff to the foot via the posterior tibial artery. PROCEDURE: The 5-Finnish sheath was changed for a 6-Finnish destination sheath. Heparin was used for anticoagulation. A Glidewire was placed successfully into the popliteal artery. The glide catheter was then placed over the wire. There was some resistance noted at the area of interest. This is lik darlene the proximal cap. Placement was confirmed. This then removed and replaced with a 4 x 40 mm Coyo te balloon catheter. One inflation performed in the area of interest It appeared the area was focal in the proximal to mid region only. There appeared to be dissection versus thrombus in the area. A 5 x 100 mm Thayer balloon catheter was then placed over the wire and inflated. It appeared more con sistent with dissection with normal flow present distally. Given the area of concern for dissection, a 7 x 80 mm self-expanding stent was then placed successfully. A 5 x 40 mm P3 balloon catheter was then placed. There was excellent angiographic result noted to the distal SFA and popliteal artery.
[2017-09-12] MEDS ORDERED: Furosemide 20 MG/2 ML VIAL ONE ×2 (15:34→16:16)
[2017-09-12] MEDS ORDERED: Atorvastatin Calcium 40 MG TAB PO SCH (21:00)
[2017-09-12] MEDS ORDERED: Insulin Glargine 40 UNITS in Pre-Filled Syringe 1 EACH SC SCH (21:00)
[2017-09-12] MEDS: Calcium Acetate 667 MG CAP PO SCH (21:16)
[2017-09-13 05:17] LABS: #Eosinphils 0.5 thou/uL (0.0-0.7); #Lymphocytes 0.8 thou/uL (1.20-3.40); #Monocytes 0.6 thou/uL (0.11-0.59); #Neutrophils 5.3 thou/uL (1.40-6.50); %Basophils 0.3 % (0.0-1.0); %Eosinophils 7.1 % (0.0-10.0); %Lymphocytes 10.9 % (21.0-51.0); %Monocytes 8.3 % (0.0-10.0); %Neutrophils 73.4 % (42.0-75.0); Hemoglobin 12.2 g/dL (14.0-18.0); Mean Corpuscular HGB CONC 31.9 g/dL (32.0-36.0); Mean Corpuscular Hemoglobin 29.6 pg (27.0-31.0); Mean Corpuscular Volume 92.7 fL (78.0-98.0); Mean Platelet Volume 7.1 fL (7.4-10.4); Platelet Count 166 thou/uL (130-400); RBC Distribution Width 15.1 % (11.5-14.5); Red Blood Cell (RBC) Count 4.13 mill/uL (4.70-6.10); White Blood Cell (WBC) Count 7.2 thou/uL (4.8-10.8)
[2017-09-13 05:29] LABS: ALT (SGPT) 14 U/L (8-55); AST (SGOT) 32 U/L (5-34); Albumin 2.7 g/dL (3.4-4.8); Alkaline Phosphatase 76 U/L (40-150); Anion Gap 15 mmol/L (10-20); BUN (Urea Nitrogen) 41 mg/dL (8.4-25.7); Bilirubin, Total 0.5 mg/dL (0.2-1.2); Calc. Creatinine Clearance 9 mL/min (70-130); Calcium 8.4 mg/dL (7.8-10.44); Carbon Dioxide 30 mmol/L (23-31); Chloride 102 mmol/L (98-107); Estimated GFR-MDRD 5; Globulin 2.6 g/dL (2.4-3.5); Glucose 122 mg/dL (80-115); Potassium 3.3 mmol/L (3.5-5.1); Protein, Total 5.3 g/dL (5.8-8.1); Sodium 144 mmol/L (136-145)
[2017-09-13 08:19] VITALS: BP 90/51; TEMP 98
[2017-09-13] MEDS ORDERED: Aspirin 81 mg Enteric Coated Tablet PO SCH (09:00)
[2017-09-13] MEDS ORDERED: Calcitriol 0.25 MCG CAP PO SCH (09:00)
[2017-09-13] MEDS: Calcium Acetate 667 MG CAP PO SCH (10:17)
--- NOTE | 2017-09-13 10:20 | CON ---
DATE OF CONSULTATION: 09/13/2017 HISTORY OF PRESENT ILLNESS: Mr. Melo is a 66-year-old white male with ESRD - on peritoneal dialysi s and admitted due to leg pains and cramping. He underwent arteriogram with angioplasty of the left lower extremity. This was said to be successful. Case discussed with Dr. Victor. He also has a 90% stenosis in the right lower extremity. Plan future stent placement is being contemplated. This morning, he is feeling better. He denies any chest pain or shortness of breath. He underwent perito faisal dialysis last night without any difficulty. REVIEW OF SYSTEMS: Positive for leg pains, no nausea, no vomiting. Currently, no chest pain, no jimena rtness of breath, no diarrhea, no constipation. Appetite and energy level is fair. No headache, no diplopia, no syncopal episode, no productive cough, no sore throat, no joint pains. No hematochezia, no melena, no hematemesis, no dysuria. MEDICATIONS: Currently on Lipitor 80 mg at bedtime, Ecotrin 81 mg once a day, calcitriol 0.25 mcg e very day, PhosLo 667 mg 2 tabs t.i.d. with meals, vitamin D3 5000 international units every day, meto prolol succinate 50 mg every day, Zoloft 25 mg once a day. PAST MEDICAL HISTORY: 1. Peripheral vascular disease. 2. Hypertension. 3. End-stage renal disease, currently on maintenance peritoneal dialysis. 4. Type 2 diabetes mellitus. 5. Coronary artery disease. 6. Depression. 7. Status post myocardial infarction. 8. Hypertension. PAST SURGICAL HISTORY: 1. Status post cardiac catheterization recently. 2. Status post arteriogram of the left lower extremity with stent placement of the left lower extrem ity. 3. Status post CABG. 4. Status post PD catheter placement. 5. Status post AV fistula placement. 6. Status post cuffed dialysis catheter placement. 7. Status post back surgery. 8. Status post appendectomy. SOCIAL HISTORY: The patient is single, lives with his mother, he lives in [place]. Several children . Smoked for 50 years, 1 pack a day. Currently no alcohol, no drug abuse. Status post blood transf usion. Sedentary lifestyle. ALLERGIES: None. TRAUMA: None. IMMUNIZATIONS: Up to date. HOSPITALIZATIONS: Please see past medical history. PHYSICAL EXAMINATION: VITAL SIGNS: Blood pressure is noted at 90/51, as high as 113/68, heart rate 94, respiratory rate 20 , pulse ox 92%, temperature 98. GENERAL: Noted to be awake, alert, comfortable, not in distress. SKIN: Adequate turgor. HEENT: He has pinkish conjunctivae, anicteric sclerae. NECK: No neck mass, no carotid bruits, no JVD. CHEST: No deformities. LUNGS: Clear breath sounds, no wheezing, no crackles. HEART: Normal sinus rhythm. No murmur, no gallops or rubs. ABDOMEN: Globular, soft, nontender, no masses. Positive for PD catheter. EXTREMITIES: Positive for edema. LABORATORY: 09/13/2017 - White count 7.2, hemoglobin 12.2. Sodium 144, potassium 3.3, chloride 102, carbon dioxide 30, BUN 41, creatinine 10.7, AST 32, ALT 14, albumin 2.7. ASSESSMENT AND PLAN: 1. End-stage renal disease, stable. Tolerating current PD regimen. He did get a 2.5% PD solution d ue to the shortness of breath and volume overload last night. My bias due to his recent volume overl oad is to use another 2.5% PD solution tonight and then go back on Sunday night on alternating 2.5 an d 1.5% PD solution. 2. Peripheral vascular disease - status post angioplasty of left lower extremity. Dr. Victor did the said procedure and this was said to be successful. 3. Mild hyperkalemia. I will simply observe this. The patient is a dialysis patient. I agree with current management.
--- NOTE | 2017-09-13 15:52 | DIS ---
DATE OF ADMISSION: 09/12/2017 DATE OF DISCHARGE: 09/13/2017 DISCHARGE DIAGNOSIS: Severe peripheral vascular disease. PROCEDURES: 1. Aortogram. 2. Bilateral aortofemoral runoff. 3. Successful LEAK DETECTOR with provisional stent placement to the left SFA. COMPLICATIONS: None. HOSPITAL COURSE: Mr. Nigel Sherman is a very pleasant 66-year-old gentleman with history of CAD, status post bypass surgery in addition to severe PVD, who was recently found to have a completely occluded left SFA. He underwent successful revascularization. He did receive IV fluids inadvertently prior t o the procedure. After the procedure, he did have increased shortness of breath. He also states he only dialyzed for hours on the day prior to his procedure. He was subsequently admitted for pe ritoneal dialysis. He also lives in [place], [place], which is outside of the normal diameter for comf ortably discharging the patient same day after angiography. Dr. Dion Pires was consulted. He underwent dialysis and did very well. He was discharged the in stable condition. DISCHARGE MEDICATIONS: Sertraline, metoprolol, lactulose, insulin, , calcitriol, atorvastatin a nd aspirin. CONDITION ON DISCHARGE: Stable.
== END 2017-09-13 10:42 | disposition home or self-care (01) ==
LOC: CCL 09:31 → 2SW 17:00
PROVIDERS: ADMIT Internal Medicine Cardiovascular Disease; ATTEND Internal Medicine Cardiovascular Disease
PROC: 047K3DZ Dilation of Right Femoral Artery with Intraluminal Device, Percutaneous Approach (ICD-10-PCS; principal; 2017-09-12)
DX: I70.213 Atherosclerosis of native arteries of extremities with intermittent claudication, bilateral legs (principal); I25.10 Atherosclerotic heart disease of native coronary artery without angina pectoris; E78.00 Pure hypercholesterolemia, unspecified; I25.2 Old myocardial infarction; E11.51 Type 2 diabetes mellitus with diabetic peripheral angiopathy without gangrene; I13.2 Hypertensive heart and chronic kidney disease with heart failure and with stage 5 chronic kidney disease, or end stage renal disease; E11.22 Type 2 diabetes mellitus with diabetic chronic kidney disease; N18.6 End stage renal disease; I50.9 Heart failure, unspecified; F32.9 Major depressive disorder, single episode, unspecified; E87.5 Hyperkalemia; Z95.1 Presence of aortocoronary bypass graft; Z86.73 Personal history of transient ischemic attack (TIA), and cerebral infarction without residual deficits; Z87.891 Personal history of nicotine dependence; Z79.82 Long term (current) use of aspirin; Z79.4 Long term (current) use of insulin; Z79.899 Other long term (current) drug therapy; Z99.2 Dependence on renal dialysis
CPT/HCPCS: 37226; 76942; 80053 ×2; 80061; 82962; 85025 ×2; 85347 ×3; 85610; 85730; 93005; 96374; 96376; C1725 ×2; C1769 ×2; C1887; 36415; 36416; 90945; 93010; G0257; J1644; J1940